=== PATIENT | female | born 1965 | race Caucasian/White ===

== ENCOUNTER 2016-03-08 13:26 | Emergency (ER) | payer OTHER ==
[2016-03-08 14:19] VITALS: RESP 20
[2016-03-08] MEDS ORDERED: IPRATROPIUM-ALBUTEROL 3 ML NEB INHALATION STA (15:22)
--- NOTE | 2016-03-08 15:42 | ED ---
General Adult HPI - General Chief complaint: Upper Respiratory Infection Stated complaint: cough, wheezing, BEATRICE Time Seen by Provider: 03/08/16 14:46 Source: patient, RN notes reviewed Mode of arrival: ambulatory Limitations: no limitations - History of Present Illness Initial comments: This 50-year-old female with complaints of cough 1 week. Patient states the cough has been going on for about a week but improved for 3 days but is now back. Patient states the cough is productive. Patient also complains of some wheezing at night. Patient also complains of some congestion. Patient denies any fever/chills, nausea/vomiting/diarrhea, otalgia, sore throat, or headache. Patient denies any history of smoking, asthma or COPD. Patient states she gets similar symptoms every year. Patient denies any recent chest pain, abdominal pain, back pain, numbness, tingling, hematuria, or visual changes, or any other complaints. - Related Data Home Medications Medication Instructions Recorded Confirmed DULoxetine HCL [Cymbalta] 30 mg PO DAILY 06/29/15 06/29/15 Simvastatin [Zocor] 10 mg PO HS 06/29/15 06/29/15 traZODone HCL 100 mg PO HS 06/29/15 06/29/15 Previous Rx's Medication Instructions Recorded Albuterol Inhaler [Ventolin Hfa 1 - 2 puff INHALATION Q6HR #1 03/08/16 Inhaler] inhaler Albuterol Nebulized [Ventolin 2.5 mg INHALATION Q4H 7 Days 03/08/16 Nebulized] Azithromycin [Zithromax Z-pack] 250 mg PO DIRECTED #6 tab 03/08/16 methylPREDNISolone [Medrol Dose 4 mg PO DIRECTED #1 pack 03/08/16 Pack] Allergies Allergy/AdvReac Type Severity Reaction Status Date / Time No Known Allergies Allergy Verified 06/29/15 17:37 Review of Systems ROS Statement: Those systems with pertinent positive or pertinent negative responses have been documented in the HPI. ROS Other: All systems not noted in ROS Statement are negative. Past Medical History Past Medical History: Hyperlipidemia History of Any Multi-Drug Resistant Organisms: None Reported Past Surgical History: Orthopedic Surgery Past Psychological History: Depression Smoking Status: Never smoker Past Alcohol Use History: None Reported Past Drug Use History: None Reported General Exam - General Exam Comments Initial Comments: General: The patient is awake and alert, in no distress, and does not appear acutely ill. Eye: Pupils are equal, round and reactive to light, extra-ocular movements are intact. No nystagmus. There is normal conjunctiva bilaterally. No signs of icterus. Ears: TMs pink and pearly with intact cone light bilaterally. Normal external ear canals. Nose: Nasal turbinates slightly erythematous but clear drainage bilaterally. No discomfort to palpation of the frontal or maxillary sinuses. Mouth and throat: There are moist mucous membranes and no oral lesions. Neck: The neck is supple, there is no tenderness or JVD. Cardiovascular: There is a regular rate and rhythm. No murmur, rub or gallop is appreciated. Respiratory: Lung sounds are diminished with faint wheezes present throughout, respirations are non-labored, breath sounds are equal. No stridor, rales, or rhonchi. Musculoskeletal: Normal ROM, no tenderness. Strength 5/5. Sensation intact. Radial Pulses equal bilaterally 2+. Neurological: A&O x 3. CN II-XII intact, There are no obvious motor or sensory deficits. Coordination appears grossly intact. Speech is normal. Skin: Skin is warm and dry and no rashes or lesions are noted. Psychiatric: Cooperative, appropriate mood & affect, normal judgment. Limitations: no limitations Course Vital Signs 03/08/16 03/08/16 03/08/16 14:17 15:38 15:49 Temperature 98.7 F Pulse Rate 90 76 72 Respiratory 20 Rate Blood Pressure 170/85 O2 Sat by Pulse 97 Oximetry 03/08/16 16:17 Temperature 98.4 F Pulse Rate 85 Respiratory 20 Rate Blood Pressure 160/89 O2 Sat by Pulse 97 Oximetry Medical Decision Making - Medical Decision Making Is a 50-year-old female presents with cough and wheezing. On physical exam lung sounds are diminished with faint wheezes present throughout, respirations are non-labored, breath sounds are equal. No stridor, rales, or rhonchi. Patient is afebrile in the EC. Pulse is 90, respirations are 20 and patient is 97% on room air. Patient's elevated systolic blood pressure reading noted. Patient states she follows up with her primary care physician tomorrow. Discussed follow-up with primary care physician for blood pressure. Patient states it is usually elevated when she is sick. Chest x-ray was done and reviewed showing: Correlate for bronchitis, follow-up is indicated. Reported by Dr. Longoria. Patient was given a DuoNeb treatment in the EC today symptom improvement. I discussed the results with patient. Discussed that patient will be given a prescription for an albuterol inhaler, nebulizer machine and for a course of steroids. Discussed that most cases of bronchitis are viral. Patient will be given a prescription for azithromycin if her symptoms do not improve within the next 5 days with alubterol and medrol. I discussed return parameters. Discussed that patient should follow up with PCP in one to 2 days or return to the [facility] for any worsening symptoms or for any further concerns. Patient was receptive to this plan and patient will be discharged home. Disposition Clinical Impression: Bronchitis Disposition: HOME SELF-CARE Condition: Good Instructions: Acute Bronchitis (ED) Additional Instructions: Please finish entire course of steroids. Please use albuterol every 4 hours as needed for wheezing. Please use azithromycin if symptoms do not improve over the next few days. Please follow up with PCP in one to 2 days or return to EC for any worsening symptoms or for any further concerns. Prescriptions: Albuterol Inhaler [Ventolin Hfa Inhaler] 1 - 2 puff INHALATION Q6HR #1 inhaler Albuterol Nebulized [Ventolin Nebulized] 2.5 mg INHALATION Q4H 7 Days Azithromycin [Zithromax Z-pack] 250 mg PO DIRECTED #6 tab methylPREDNISolone [Medrol Dose Pack] 4 mg PO DIRECTED #1 pack Referrals: Roberto Lindo MD [Primary Care Provider] - 1-2 days Time of Disposition: 16:25
--- NOTE | 2016-03-08 15:59 | XR ---
EXAMINATION TYPE: XR chest 2V DATE OF EXAM: 03/08/2016 3:55 PM COMPARISON: Prior chest x-ray October HISTORY: Cough and pain TECHNIQUE: Frontal and lateral views of the chest are obtained. FINDINGS: There is no focal air space opacity, pleural effusion, or pneumothorax seen. The cardiac silhouette size is within normal limits. The patient is rotated which may accentuate the heart size. Bronchial wall thickening is noted. The osseous structures are intact. IMPRESSION: Correlate for bronchitis, follow-up as indicated.
[2016-03-08 16:18] VITALS: BP 160/89; PULSE 85; TEMP 98.4
== END 2016-03-08 16:29 | disposition home or self-care (01) ==
LOC: EC 13:26
DX: J40 Bronchitis, not specified as acute or chronic (principal); E78.5 Hyperlipidemia, unspecified; F32.9 Major depressive disorder, single episode, unspecified; Z79.899 Other long term (current) drug therapy; R03.0 Elevated blood-pressure reading, without diagnosis of hypertension
CPT/HCPCS: 71020; 94640; 99283

== ENCOUNTER 2016-11-01 07:59 | Emergency (ER) | payer OTHER ==
[2016-11-01 08:05] VITALS: BP 206/93; PULSE 67; RESP 18; TEMP 98.4
[2016-11-01] MEDS ORDERED: IBUPROFEN 600 MG TAB PO STA (08:14)
--- NOTE | 2016-11-01 08:14 | ED ---
General Adult HPI - General Chief complaint: Extremity Injury, Upper Stated complaint: Right Finger Injury Time Seen by Provider: 11/01/16 08:07 Source: patient, RN notes reviewed Mode of arrival: ambulatory Limitations: no limitations - History of Present Illness Initial comments: 51-year-old female presents to the emergency department with a chief complaint of right hand pain. Patient states she was playing with her granddaughter most pain ever since then she's had this pain to the right hand and the right ring finger. Patient states she was at [place] backwards at times she says she was it [id number]. Patient states there is no falls to the area. Patient states she was just plain and then she got a pain. Patient denies any history of injury to this area in the past. pain is moderate worse to movement. Patient denies any other symptoms at this time.Patient denies any recent fever, chills, shortness of breath, chest pain, back pain, abdominal pain, nausea vomiting, numbness or tingling, dysuria or hematuria, constipation or diarrhea, headaches or visual changes, or any other current symptoms. - Related Data Home Medications Medication Instructions Recorded Confirmed DULoxetine HCL [Cymbalta] 30 mg PO DAILY 06/29/15 06/29/15 Simvastatin [Zocor] 10 mg PO HS 06/29/15 06/29/15 traZODone HCL 100 mg PO HS 06/29/15 06/29/15 Previous Rx's Medication Instructions Recorded Albuterol Inhaler [Ventolin Hfa 1 - 2 puff INHALATION Q6HR #1 03/08/16 Inhaler] inhaler Albuterol Nebulized [Ventolin 2.5 mg INHALATION Q4H 7 Days 03/08/16 Nebulized] Azithromycin [Zithromax Z-pack] 250 mg PO DIRECTED #6 tab 03/08/16 methylPREDNISolone [Medrol Dose 4 mg PO DIRECTED #1 pack 03/08/16 Pack] Allergies Allergy/AdvReac Type Severity Reaction Status Date / Time No Known Allergies Allergy Verified 11/01/16 08:05 Review of Systems ROS Statement: Those systems with pertinent positive or pertinent negative responses have been documented in the HPI. ROS Other: All systems not noted in ROS Statement are negative. Past Medical History Past Medical History: Hyperlipidemia History of Any Multi-Drug Resistant Organisms: None Reported Past Surgical History: Orthopedic Surgery Past Psychological History: Depression Smoking Status: Never smoker Past Alcohol Use History: None Reported Past Drug Use History: None Reported General Exam - General Exam Comments Initial Comments: General: The patient is awake and alert, in no distress, and does not appear acutely ill. Neck: The neck is supple, there is no tenderness. Cardiovascular: There is a regular rate and rhythm. No murmur, rub or gallop is appreciated. Respiratory: Lungs are clear to auscultation, respirations are non-labored, breath sounds are equal. No wheezes, stridor, rales, or rhonchi. Musculoskeletal: Sensation intact with 2+ pulses. Pressure. Range of motion of right wrist and right hand. Patient does have some pain throughout the fourth metacarpal. No pain to palpation of the right ring finger. No deformities or ecchymosis noted. Neurological: CN II-XII intact, There are no obvious motor or sensory deficits. Coordination appears grossly intact. Speech is normal. Skin: Skin is warm and dry and no rashes or lesions are noted. Psychiatric: Normal mood and affect. Limitations: no limitations Course Vital Signs 11/01/16 08:03 Temperature 98.4 F Pulse Rate 67 Respiratory 18 Rate Blood Pressure 206/93 O2 Sat by Pulse 98 Oximetry Medical Decision Making - Medical Decision Making 51-year-old female presents for right finger pain after playing. At this time x -ray is reviewed and negative. This and we discussed Motrin Tylenol ice. We discussed return parameters follow-up and outpatient family's questions. They stated the Cornelio they are given plan. All questions have been answered. They will be discharged home. - Radiology Data Radiology results: report reviewed, image reviewed Disposition Clinical Impression: Sprain of right hand, Contusion of right hand Disposition: HOME SELF-CARE Condition: Stable Instructions: Hand Sprain (ED) Additional Instructions: Please use medication as discussed. Please follow up with family doctor if symptoms have not improved over the next two days. Please return to the emergency room if your symptoms increase or worsen or for any other concerns. Referrals: Roberto Lindo MD [Primary Care Provider] - 1-2 days Time of Disposition: 08:30
--- NOTE | 2016-11-01 08:28 | XR ---
EXAMINATION TYPE: XR hand complete RT DATE OF EXAM: 11/01/2016 CLINICAL HISTORY: Right hand pain TECHNIQUE: Frontal, lateral and oblique images of the right hand are obtained. COMPARISON: None. FINDINGS: There is no acute fracture/dislocation evident in the right hand. The joint spaces in the right hand appear within normal limits. The overlying soft tissue appears unremarkable. IMPRESSION: There is no acute fracture or dislocation in the right hand.
== END 2016-11-01 08:38 | disposition home or self-care (01) ==
LOC: EC 07:59
DX: S63.91XA Sprain of unspecified part of right wrist and hand, initial encounter (principal); E78.5 Hyperlipidemia, unspecified; F32.9 Major depressive disorder, single episode, unspecified; Z79.899 Other long term (current) drug therapy; X58.XXXA Exposure to other specified factors, initial encounter; Y93.89 Activity, other specified
CPT/HCPCS: 99283

== ENCOUNTER → 2017-05-09 | Outpatient (CLI) | payer OTHER | END | disposition home or self-care (01) | LOC: LABWHC1 13:05 | PROVIDERS: ATTEND Family Medicine | DX: R11.2 Nausea with vomiting, unspecified (principal) | CPT/HCPCS: 87502 ==

== ENCOUNTER 2019-03-07 16:44 | Observation (INO) | payer OTHER ==
[2019-03-07] MEDS ORDERED: ASPIRIN 81 MG PO STA (18:31)
[2019-03-07] MEDS ORDERED: SODIUM CHLORIDE 0.9% 500 ML 500 ML IV STA (18:31)
--- NOTE | 2019-03-07 18:52 | ED ---
General Adult HPI - General Source: patient Mode of arrival: ambulatory Limitations: no limitations <France Mcgarry - Last Filed: 03/07/19 20:59> <Rossy Rosen - Last Filed: 03/10/19 21:25> - General Chief complaint: Chest Pain Stated complaint: chest pain Time Seen by Provider: 03/07/19 18:11 - History of Present Illness Initial comments: 53-year-old female patient presents to the emergency department today for evaluation of chest pain. 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 Patient states the pain is worse when she is doing activity and standing. Patient states the pain diminishes while resting but never completely goes away. She denies any radiation of the pain through to her back. She denies any associated symptoms including shortness of breath, sweating, nausea, or vomiting. She denies history of similar type pain. Patient does have a history of high cholesterol does take blood pressure medication, she does not believe she has hypertension. States that she generally has some swelling to her lower extremities but denies any increase in the swelling or pain to the legs. Denies any recent travel. Denies any cough or congestion. Patient denies any recent rash, fever, chills, diarrhea, constipation, back pain, numbness, tingling, dizziness, weakness, hematuria, dysuria, urinary urgency, urinary frequency, headache, visual changes, or any other complaints. (France Mcgarry) - Related Data Home Medications Medication Instructions Recorded Confirmed DULoxetine HCL [Cymbalta] 30 mg PO HS 06/29/15 03/07/19 Chlorthalidone 25 mg PO HS 03/07/19 03/07/19 Lisinopril [Prinivil] 10 mg PO HS 03/07/19 03/07/19 rOPINIRole HCL [Requip] 0.25 mg PO HS 03/07/19 03/07/19 traZODone HCL 100 mg PO HS 03/07/19 03/07/19 Allergies Allergy/AdvReac Type Severity Reaction Status Date / Time No Known Allergies Allergy Verified 03/07/19 22:04 Review of Systems ROS Other: All systems not noted in ROS Statement are negative. <France Mcgarry - Last Filed: 03/07/19 20:59> ROS Other: All systems not noted in ROS Statement are negative. <Rossy Rosen - Last Filed: 03/10/19 21:25> ROS Statement: Those systems with pertinent positive or pertinent negative responses have been documented in the HPI. Past Medical History Past Medical History: Hyperlipidemia History of Any Multi-Drug Resistant Organisms: None Reported Past Surgical History: Orthopedic Surgery Past Psychological History: Depression Smoking Status: Never smoker Past Alcohol Use History: None Reported Past Drug Use History: None Reported <France Mcgarry Daron - Last Filed: 03/07/19 20:59> General Exam Limitations: no limitations General appearance: alert, in no apparent distress, other (This is a well- developed, well-nourished adult female patient in no acute distress. Vital sig ns upon presentation are temperature 97.6F, pulse 71, respirations 19, blood pressure 134/90, pulse ox 98% on room air.) Eye exam: Present: normal appearance, PERRL, EOMI. Absent: scleral icterus, conjunctival injection, periorbital swelling ENT exam: Present: normal exam, normal oropharynx, mucous membranes moist Respiratory exam: Present: normal lung sounds bilaterally. Absent: respiratory distress, wheezes, rales, rhonchi, stridor Cardiovascular Exam: Present: regular rate, normal rhythm, normal heart sounds. Absent: systolic murmur, diastolic murmur, rubs, gallop, clicks GI/Abdominal exam: Present: soft, tenderness (Mild midepigastric), normal bowel sounds. Absent: distended, guarding, rebound, rigid Neurological exam: Present: alert, oriented X3, CN II-XII intact Psychiatric exam: Present: normal affect, normal mood Skin exam: Present: warm, dry, intact, normal color. Absent: rash <France Mcgarry M - Last Filed: 03/07/19 20:59> Course Vital Signs 03/07/19 03/07/19 03/07/19 16:47 17:58 18:57 Temperature 97.6 F 98.7 F Pulse Rate 71 62 68 Respiratory 19 17 20 Rate Blood Pressure 134/90 141/87 127/77 O2 Sat by Pulse 98 100 100 Oximetry 03/07/19 03/07/19 20:00 21:00 Temperature 98.1 F 98.6 F Pulse Rate 80 59 L Respiratory 16 17 Rate Blood Pressure 146/80 146/80 O2 Sat by Pulse 100 99 Oximetry EKG Findings - EKG Comments: EKG Findings:: EKG obtained at 1705 shows normal sinus rhythm with a ventricular rate of 65,. Interval 180, QRS duration 80, QTc 416, QTC 432. There is some T-wave inversion in V1, V2, and aVR. No ST elevation or depression noted. <France Mcgarry - Last Filed: 03/07/19 20:59> Medical Decision Making - Lab Data Result diagrams: 03/07/19 17:30 03/07/19 17:30 - Radiology Data Radiology results: report reviewed, image reviewed <France Mcgarry - Last Filed: 03/07/19 20:59> - Lab Data Result diagrams: 03/07/19 17:30 03/07/19 17:30 <Rossy Rosen - Last Filed: 03/10/19 21:25> - Medical Decision Making 53-year-old female patient presents to the emergency department today for evalu ation of substernal chest pain that worsens with activity and improves at rest. EKG did show some T-wave inversions. She does have history of hypertension and hyperlipidemia. She will be admitted to the hospital for observation and further monitoring. We will consult cardiology. (France Mcgarry) I was available for consultation in the emergency department. The history and physical exam were done by the midlevel provider. I was consulted for this patients care. I reviewed the case with the midlevel provider and based on their presentation of the patient, I agree with the assessment, medical decision making and plan of care as documented. Case was discussed with Dr. Lindo who accepted admission. Chart was dictated using [employer] dictation software. Attempts were made to correct any dictation errors however some typographical errors may persist. (Rossy Rosen) - Lab Data Lab Results 03/07/19 03/07/19 03/07/19 Range/Units 17:30 17:30 17:30 WBC 6.0 (3.8-10.6) k/uL RBC 4.16 (3.80-5.40) m/uL Hgb 12.1 (11.4-16.0) gm/dL Hct 36.4 (34.0-46.0) % MCV 87.5 (80.0-100.0) fL MCH 29.1 (25.0-35.0) pg MCHC 33.3 (31.0-37.0) g/dL RDW 13.5 (11.5-15.5) % Plt Count 358 (150-450) k/uL Neutrophils % 60 % Lymphocytes % 26 % Monocytes % 6 % Eosinophils % 3 % Basophils % 1 % Neutrophils # 3.6 (1.3-7.7) k/uL Lymphocytes # 1.6 (1.0-4.8) k/uL Monocytes # 0.4 (0-1.0) k/uL Eosinophils # 0.2 (0-0.7) k/uL Basophils # 0.1 (0-0.2) k/uL PT 9.6 (9.0-12.0) sec INR 0.9 (<1.2) APTT 24.9 (22.0-30.0) sec Sodium 137 (137-145) mmol/L Potassium 4.3 (3.5-5.1) mmol/L Chloride 98 (98-107) mmol/L Carbon Dioxide 31 H (22-30) mmol/L Anion Gap 8 mmol/L BUN 15 (7-17) mg/dL Creatinine 0.91 (0.52-1.04) mg/dL Est GFR (CKD-EPI)AfAm 84 (>60 ml/min/1.73 sqM) Est GFR (CKD-EPI)NonAf 73 (>60 ml/min/1.73 sqM) Glucose 100 H (74-99) mg/dL Calcium 10.3 H (8.4-10.2) mg/dL Magnesium 2.0 (1.6-2.3) mg/dL Total Bilirubin 0.9 (0.2-1.3) mg/dL AST 24 (14-36) U/L ALT 24 (4-34) U/L Alkaline Phosphatase 78 (38-126) U/L Troponin I (0.000-0.034) ng/mL Total Protein 6.8 (6.3-8.2) g/dL Albumin 4.0 (3.5-5.0) g/dL Lipase 25 (23-300) U/L 03/07/19 Range/Units 17:30 WBC (3.8-10.6) k/uL RBC (3.80-5.40) m/uL Hgb (11.4-16.0) gm/dL Hct (34.0-46.0) % MCV (80.0-100.0) fL MCH (25.0-35.0) pg MCHC (31.0-37.0) g/dL RDW (11.5-15.5) % Plt Count (150-450) k/uL Neutrophils % % Lymphocytes % % Monocytes % % Eosinophils % % Basophils % % Neutrophils # (1.3-7.7) k/uL Lymphocytes # (1.0-4.8) k/uL Monocytes # (0-1.0) k/uL Eosinophils # (0-0.7) k/uL Basophils # (0-0.2) k/uL PT (9.0-12.0) sec INR (<1.2) APTT (22.0-30.0) sec Sodium (137-145) mmol/L Potassium (3.5-5.1) mmol/L Chloride (98-107) mmol/L Carbon Dioxide (22-30) mmol/L Anion Gap mmol/L BUN (7-17) mg/dL Creatinine (0.52-1.04) mg/dL Est GFR (CKD-EPI)AfAm (>60 ml/min/1.73 sqM) Est GFR (CKD-EPI)NonAf (>60 ml/min/1.73 sqM) Glucose (74-99) mg/dL Calcium (8.4-10.2) mg/dL Magnesium (1.6-2.3) mg/dL Total Bilirubin (0.2-1.3) mg/dL AST (14-36) U/L ALT (4-34) U/L Alkaline Phosphatase (38-126) U/L Troponin I <0.012 (0.000-0.034) ng/mL Total Protein (6.3-8.2) g/dL Albumin (3.5-5.0) g/dL Lipase (23-300) U/L - Radiology Data Two-view x-ray of the chest is obtained. Report reviewed in its entirety. Impression by Dr. Dutta shows no active cardiopulmonary disease. No change (France Mcgarry) Disposition Decision to Admit Reason: Admit from [facility] Decision Date: 03/07/19 Decision Time: 20:13 <France Mcgarry - Last Filed: 03/07/19 20:59> <Rossy Rosen - Last Filed: 03/10/19 21:25> Clinical Impression: Chest pain Disposition: ADMITTED IP TO THIS HOSP Condition: Serious
[2019-03-07 19:09] LABS: Basophils # (A) 0.1 k/uL (0-0.2); Basophils % (A) 1 %; Eosinophils # (A) 0.2 k/uL (0-0.7); Eosinophils % (A) 3 %; HCT 36.4 % (34.0-46.0); HGB 12.1 gm/dL (11.4-16.0); Lymphocytes # (A) 1.6 k/uL (1.0-4.8); Lymphocytes % (A) 26 %; MCH 29.1 pg (25.0-35.0); MCHC 33.3 g/dL (31.0-37.0); MCV 87.5 fL (80.0-100.0); Mean Platelet Volume 7.3; Monocytes # (A) 0.4 k/uL (0-1.0); Monocytes % (A) 6 %; Neutrophils # (A) 3.6 k/uL (1.3-7.7); Neutrophils % (A) 60 %; Platelet Count 358 k/uL (150-450); RBC 4.16 m/uL (3.80-5.40); RDW 13.5 % (11.5-15.5)
[2019-03-07 19:15] LABS: Calcium 10.3 mg/dL (8.4-10.2); Potassium 4.3 mmol/L (3.5-5.1); Total Bilirubin 0.9 mg/dL (0.2-1.3); Total Protein 6.8 g/dL (6.3-8.2)
[2019-03-07 19:31] LABS: INR 0.9 (<1.2); Partial Thromboplastin Time 24.9 sec (22.0-30.0); Prothrombin Time 9.6 sec (9.0-12.0)
--- NOTE | 2019-03-07 19:36 | XR ---
EXAMINATION TYPE: XR chest 2V DATE OF EXAM: 03/07/2019 COMPARISON: 03/08/2016 HISTORY: Chest pain TECHNIQUE: FINDINGS: There is no heart failure nor confluent pneumonic infiltrate. Costophrenic angles are clear . There are chest leads. Bony thorax is intact. IMPRESSION: No active cardiopulmonary disease. No change.
[2019-03-07] MEDS ORDERED: ONDANSETRON 4 MG/2 ML VIAL IVP PRN (20:11)
[2019-03-07] MEDS ORDERED: NALOXONE 0.4 MG/ML 1 ML VIAL IV PRN (20:11)
[2019-03-07 21:36] VITALS: RESP 18
[2019-03-08 06:08] LABS: Cholesterol 208 mg/dL (<200); HDL Cholesterol 52 mg/dL (40-60); LDL Cholesterol,Calculated 138 mg/dL (0-99); Triglycerides 91 mg/dL (<150)
[2019-03-08] MEDS ORDERED: DOBUTamine DRIP for NUC MED 500 MG in DEXTROSE/WATER 1 250ML.BAG IV ONE (08:00)
[2019-03-08] MEDS ORDERED: ASPIRIN 325 MG TAB PO SCH (09:00)
[2019-03-08] MEDS ORDERED: ASPIRIN 81 MG PO SCH (09:00)
--- NOTE | 2019-03-08 10:08 | CONS ---
CONSULTATION Mrs. Graves is a 53-year-old female with a history of hypertension who presented with symptoms of chest discomfort. The discomfort started yesterday across the chest, associated with some worsening with physical activity, not associated with any dyspnea, dizziness or palpitation. The patient has no prior cardiac history. Her discomfort lasted throughout the day. She is pain-free this morning. She is not very active physically because of her knee discomfort, but she has no prior cardiac history. She denies any significant dyspnea on exertion. She denies any dizziness, palpitation, or syncope. No PND or orthopnea. She has occasional peripheral edema. Her coronary risk factors are remarkable for hypertension. She is nonsmoker, nondiabetic. She is not aware of her lipid profile. MEDICATION: Her medications at home include trazodone 100 mg daily, ropinirole 0.25 mg daily, lisinopril 10 mg daily, Cymbalta 30 mg daily, chlorthalidone 25 mg daily. REVIEW OF SYSTEMS: RESPIRATORY SYSTEM: She has no documented history of asthma, emphysema or bronchitis. GI SYSTEM: No recent GI bleeding. No peptic ulcer disease. SYSTEM: No dysuria or hematuria. NERVOUS SYSTEM: No stroke or seizure. PHYSICAL EXAMINATION: She is a 53-year-old female, alert, oriented, in no apparent distress. Blood pressure 122/70 with the heart rate in the 60s. HEAD: Normocephalic. EYES: Sclerae nonicteric. NECK: Good carotid upstroke. No bruit. No jugular venous distention. LUNGS: Clear to auscultation. HEART: Regular rate and rhythm. S1, S2. No S3. No S4. No murmur or rub. ABDOMEN: Soft, obese, nontender. Positive bowel sounds. No organomegaly. EXTREMITIES: No edema. Intact distal pulses. LAB DATA: Lab data revealed a troponin less than 0.012. Cholesterol 208, LDL of 138, HDL of 52. Potassium 4.3. Hemoglobin of 12.1. EKG revealed a sinus mechanism, normal axis and intervals with minor nonspecific ST-T wave changes. Chest x-ray shows no acute infiltrate. IMPRESSION: 1. Chest discomfort of unclear etiology, has some atypical features for ischemic heart disease in a patient with a history of hypertension. 2. History of hypertension. 3. Obesity. RECOMMENDATION: I recommend proceeding with dobutamine stress echocardiogram as well as transthoracic echo and depending on those findings, further recommendation will be made. Thank you for this consult. We will follow with you. MMODL / IJN: [id number] /
--- NOTE | 2019-03-08 10:48 | ECHOF ---
Referral Reason:cp MEASUREMENTS -------- HEIGHT: 157.5 cm WEIGHT: 130.6 kg BP: 122/78 RVIDd: 3.0 cm (< 3.3) IVSd: 1.3 cm (0.6 - 1.1) LVIDd: 4.9 cm (3.9 - 5.3) LVPWd: 1.3 cm (0.6 - 1.1) IVSs: 1.9 cm LVIDs: 3.1 cm LVPWs: 1.7 cm LA Diam: 2.8 cm (2.7 - 3.8) LAESV Index (A-L): 25.71 ml/m Ao Diam: 3.2 cm (2.0 - 3.7) AV Cusp: 2.0 cm (1.5 - 2.6) MV EXCURSION: 17.297 mm (> 18.000) MV EF SLOPE: 113 mm/s (70 - 150) EPSS: 1.4 cm MV E Ar: 0.96 m/s MV DecT: 227 ms MV A Ar: 1.13 m/s MV E/A Ratio: 0.85 RAP: 15.00 mmHg RVSP: 28.85 mmHg FINDINGS -------- Sinus rhythm. This was a technically adequate study. The left ventricular size is normal. There is mild concentric left ventricular hypertrophy. Overa ll left ventricular systolic function is normal with, an EF between 55 - 60 %. The diastolic fillin g pattern is normal for the age of the patient 12.92. The right ventricle is normal in size. Normal LA size by volume 22+/-6 ml/m2. The right atrial size is normal. The aortic valve is trileaflet, and appears structurally normal. No aortic stenosis or regurgitation. The mitral valve is normal. There is trace mitral regurgitation. Mild tricuspid regurgitation present. Right ventricular systolic pressure is normal at < 35 mmHg. The right ventricular systolic pressure, as measured by Doppler, is 28.85mmHg. Trace/mild (physiologic) pulmonic regurgitation. The aortic root size is normal. Normal inferior vena cava with less than 50% inspiratory collapse consistent with estimated right atr ial pressure of 15 mmHg. There is no pericardial effusion. CONCLUSIONS -------- 1. Sinus rhythm. 2. There is mild concentric left ventricular hypertrophy. 3. Overall left ventricular systolic function is normal with, an EF between 55 - 60 %. 4. The diastolic filling pattern is normal for the age of the patient 12.92 5. Normal LA size by volume 22+/-6 ml/m2. 6. The aortic valve is trileaflet, and appears structurally normal. No aortic stenosis or regurgitati on. 7. There is trace mitral regurgitation. 8. Mild tricuspid regurgitation present. 9. Right ventricular systolic pressure is normal at < 35 mmHg. 10. Trace/mild (physiologic) pulmonic regurgitation. 11. There is no pericardial effusion. [employer]UD [employer]: YELENA Murray
--- NOTE | 2019-03-08 11:17 | ECHOS ---
STRESS ECHOCARDIOGRAM DATE OF SERVICE: 03/08/2019 INDICATIONS: Chest pain. MEDICATIONS: BASELINE HEART RATE: 71 BASELINE BLOOD PRESSURE: 137/64 MAXIMUM HEART RATE: 148 MAXIMUM BLOOD PRESSURE: 181/40 85% MPHR: 143 100% MPHR: 168 METS: MAXIMUM STAGE REACHED: TOTAL EXERCISE TIME: CLINICAL INFORMATION: Baseline rhythm is sinus mechanism, rate of 71, normal axis and intervals. Baseline blood pressure 137/64 mmHg. Patient received an infusion of dobutamine per protocol. Peak rate 148 beats per minute which is equal to 88% maximum predicted heart rate. Peak blood pressure 181/40 mmHg. Electrocardiograph monitoring revealed no evidence of diagnostic ischemic ST deviation. Baseline echocardiogram revealed normal wall thickening and motion. At peak infusion, there was normal wall motion augmentation with no hypokinesis or dyskinesis. CONCLUSION: 1. Normal electrocardiograph response to dobutamine infusion. 2. Normal stress echocardiogram with no evidence of stress induced ischemia. MMODL / IJN: [id number] /
[2019-03-08 16:26] VITALS: BP 129/78; PULSE 70; TEMP 98
--- NOTE | 2019-03-08 17:05 | HP ---
HISTORY AND PHYSICAL CHIEF COMPLAINT: Chest pain. HISTORY OF PRESENT ILLNESS: This is another admission for this 53-year-old obese white female who presented to the emergency room with chest pain. She had some minor ST-segment and T-wave changes when she came to the emergency room, which subsided. She was slightly short of breath but not diaphoretic. Troponin was normal. She does have a history of hypertension. REVIEW OF SYSTEMS: She has had no syncope, headache, neurologic problems, difficulty with vision or hearing, cough, hemoptysis, sputum production, pleurisy, orthopnea, PND, murmurs, rheumatic fever, history of heart disease, angina, or murmurs, etc. She has had no abdominal pain, nausea, vomiting, hematemesis, melena, hematochezia, colitis, diverticulosis, diverticulitis, hemorrhoids, jaundice, hepatitis, cirrhosis, hematuria, frequency, urgency, renal failure, diabetes, etc. Past medical history, family history, personal and social histories reveal that she is not allergic to any medications. MEDICATIONS: She takes trazodone 100 mg at bedtime, vitamin D 50,000 units a week, lisinopril 10 mg once a day, chlorthalidone 25 once a day, duloxetine 30 mg once a day. Ibuprofen 800 mg q.i.d. p.r.n., ropinirole 0.25 at bedtime p.r.n., albuterol. Past medical history, family history and personal and social histories are otherwise unremarkable and noncontributory. She has never been a smoker. She does not drink. She has had tubal ligation, right knee replacement, left knee arthroscopy, and cholecystectomy. PHYSICAL EXAMINATION: Blood pressure 126/84, pulse 64, respirations 16 and she is afebrile. In general, she appeared to be obese with a BMI of 53.6. Skin color is normal. Skin is warm, dry. Lymph nodes not enlarged. Head, ears, eyes, nose, mouth, and throat were normal. Neck veins not distended. Thyroid could not be assessed. Chest is clear to auscultation. Cardiac exam demonstrates sinus rhythm and no murmurs or extra sounds. Abdomen is soft and nontender and protuberant. Extremities normal. Neurological: She is intact. IMPRESSION: 1. Chest pain. 2. Hypertension. PLAN: 1. Bed rest. 2. IV fluids. 3. Serial EKGs and enzymes. 4. Cardiology consult. YONIS / KENN: [id number] /
[2019-03-08] MEDS ORDERED: LISINOPRIL 10 MG TAB PO SCH (21:00)
[2019-03-08] MEDS ORDERED: CHLORTHALIDONE 25 MG TAB PO SCH (21:00)
--- NOTE | 2019-03-09 08:05 | DS ---
DISCHARGE SUMMARY CHIEF COMPLAINT: Chest pain. HISTORY OF PRESENT ILLNESS AND PHYSICAL EXAM: Details of this lady's history and physical can be found in the initial workup. LABORATORY STUDIES: While she was in a hospital, she had laboratory studies, details of which can be found in the laboratory section of her chart. COURSE IN HOSPITAL: After admission, she was placed on bedrest, started on intravenous fluids and had serial enzymes and EKGs which were normal. She was taken for stress test by Cardiology and it was normal. It was felt she could be discharged. She will go home on the usual activity, diet and medication and follow up in the office in 1 or 2 days. FINAL DIAGNOSES: 1. Atypical chest pain. 2. Obesity. 3. Hypertension. OPERATIONS: None. CONSULTATION: Cardiology. She is improved. YONIS / KENN: [id number] /
== END 2019-03-08 17:13 | disposition home or self-care (01) ==
LOC: EC 16:44 → 1SOBS 21:00
PROVIDERS: ADMIT Family Medicine; ATTEND Family Medicine
DX: R07.89 Other chest pain (principal); R06.02 Shortness of breath; E78.00 Pure hypercholesterolemia, unspecified; I10 Essential (primary) hypertension; E78.5 Hyperlipidemia, unspecified; E66.9 Obesity, unspecified; Z68.43 Body mass index [BMI] 50.0-59.9, adult; F32.9 Major depressive disorder, single episode, unspecified; Z98.51 Tubal ligation status; Z96.651 Presence of right artificial knee joint; Z90.49 Acquired absence of other specified parts of digestive tract; Z79.899 Other long term (current) drug therapy
CPT/HCPCS: 93005 ×2; 96360; 99285; 36415; 94660; 93306; 80061; 80053; 83690; 83735; 84484 ×2; 85025; 85610; 85730; 71046; G0378 ×2; C8930; J1250; Q9950; 93351

== ENCOUNTER 2020-02-25 08:25 | Day surgery (SDC) | payer OTHER ==
[2020-02-20 16:02] VITALS: BMI 56.0
[~2020-02-25 08:25] MED LIST: HYDROmorphone 0.5 MG/0.5 ML SYRINGE IVP PRN; LACTATED RINGERS 1,000 ML IV SCH; LIDOCAINE 1% (10MG/ML) FOR IV START INTRADERMA PRN; Pre Op ABX Message 1 EACH MISC MISCELLANE ONE; SCOPOLAMINE 1.5MG/72HR PATCH TRANSDERM ONE
[2020-02-25] MEDS: DEXAMETHASONE SOD PHOSPHATE 4 MG/ML 1 ML VIAL IV ONE ×2 (09:01→09:05)
[2020-02-25] MEDS ORDERED: MIDAZOLAM 2 MG/2 ML VIAL IVP ONE ×2 (09:01→09:05)
[2020-02-25] MEDS: ONDANSETRON 4 MG/2 ML VIAL IVP ONE ×2 (09:01→09:05)
[2020-02-25] MEDS ORDERED: fentaNYL (PF) 50 MCG/ML 2 ML AMP ONE (10:15)
[2020-02-25] MEDS ORDERED: KETOROLAC 15 MG/ML 1 ML VIAL ONE (10:15)
[2020-02-25] MEDS ORDERED: SUCCINYLCHOLINE CHLORIDE 100 MG/5 ML SYR IV ONE (10:15)
[2020-02-25] MEDS ORDERED: MIDAZOLAM 2 MG/2 ML VIAL ONE (10:15)
[2020-02-25] MEDS ORDERED: PROPOFOL 10 MG/ML 20 ML VIAL IV ONE (10:15)
[2020-02-25] MEDS ORDERED: SORBITOL 3% IRRIGATION 3,000 ML IRRIGATION ONE (10:34)
[2020-02-25] MEDS ORDERED: LACTATED RINGERS 1,000 ML IV SCH (10:45)
[2020-02-25] MEDS ORDERED: IBUPROFEN 600 MG TAB PO PRN (10:45)
[2020-02-25] MEDS ORDERED: SIMETHICONE 80 MG CHEWABLE PO PRN (10:45)
[2020-02-25] MEDS ORDERED: KETOROLAC 15 MG/ML 1 ML VIAL IVP PRN (10:45)
[2020-02-25] MEDS ORDERED: diphenhydrAMINE 50 MG/ML 1 ML VIAL IVP PRN (10:45)
[2020-02-25] MEDS ORDERED: Acetaminophen-Codeine 300-30mg TAB PO PRN ×2 (10:45)
[2020-02-25] MEDS ORDERED: ONDANSETRON 4 MG/2 ML VIAL IVP PRN (10:45)
[2020-02-25] MEDS ORDERED: METOCLOPRAMIDE 5 MG/ML 2 ML VIAL IVP PRN (10:45)
--- NOTE | 2020-02-25 10:50 | P.OP ---
Date of Procedure: 02/25/20 Preoperative Diagnosis: #1. Post menopausal bleeding #2. Morbid obesity Postoperative Diagnosis: Same Procedure(s) Performed: 1. Diagnostic hysteroscopy #2. Dilation and curettage Anesthesia: CAREN Surgeon: Jimmy Magana Estimated Blood Loss (ml): 5 IV fluids (ml): 300 Urine output (ml): 20 Pathology: other (Endometrial curettings) Condition: stable Disposition: PACU Operative Findings: Preoperative pelvic examination demonstrated a roughly 4 week plane mobile normal shaped uterus of the exam is somewhat limited secondary to patient's abdominal habitus. Intraoperatively, the uterus sounded to 9 cm. Using the hysteroscope, there was some shaggy endometrial tissue in the midportion of the fundus along the posterior wall. The left tubal ostia was seen while the right tubal ostia was not seen secondary to the shaggy tissue in front of it. A moderate amount of tissue was removed and the typical gritty texture was encountered throughout. Description of Procedure: The patient was prepped and draped in usual fashion after general endotracheal anesthesia was administered by the anesthesiologist. A weighted speculum was placed and the interior of the cervix grasped with a single-tooth tenaculum. The bladder was drained of approximately 20 mL of clear tomi urine. Uterus was sounded to approximately 9 cm as noted above. Serial dilation was carried out to admit the diagnostic hysteroscope which was placed and the cavity distended with sorbitol. The findings are as noted above with a moderate amount of shaggy tissue in the mid and upper portion of the posterior wall of the uterus primarily on the right side. There was no other abnormality is noted. The scope was then set aside and the small sharp curette introduced and the cavity which was used to thoroughly and circumferentially curet in vitro cavity tissues onto a Telfa placed in the vagina. Once adequate curettage been carried out, the school commissioner mentation was removed. There was no significant ongoing bleeding from either the cervix or the tenaculum site. All instrument H was removed and the patient workup. Estimated blood loss for the entire case was approximately 5 mL or less. There are no complications. All sponge, instrument, needle counts were correct. The patient tolerated the procedure well and proceeded to the recovery room in stable condition.
[2020-02-25 10:58] VITALS: TEMP 98.3
[2020-02-25 11:01] VITALS: RESP 16
[2020-02-25 11:40] VITALS: BP 146/90; PULSE 96
[2020-02-26] MEDS ORDERED: ACETAMINOPHEN TAB 325 MG TAB PO PRN (10:46)
== END 2020-02-25 12:19 | disposition home or self-care (01) ==
LOC: OR 08:25
PROVIDERS: ATTEND Obstetrics & Gynecology
DX: N84.0 Polyp of corpus uteri (principal); N95.0 Postmenopausal bleeding; N88.2 Stricture and stenosis of cervix uteri; E66.01 Morbid (severe) obesity due to excess calories; F41.9 Anxiety disorder, unspecified; F32.9 Major depressive disorder, single episode, unspecified; E78.5 Hyperlipidemia, unspecified; I10 Essential (primary) hypertension; M19.90 Unspecified osteoarthritis, unspecified site; J45.20 Mild intermittent asthma, uncomplicated; G47.33 Obstructive sleep apnea (adult) (pediatric); R60.0 Localized edema; K08.89 Other specified disorders of teeth and supporting structures; Z68.43 Body mass index [BMI] 50.0-59.9, adult; Z86.2 Personal history of diseases of the blood and blood-forming organs and certain disorders involving the immune mechanism; Z86.19 Personal history of other infectious and parasitic diseases; Z90.49 Acquired absence of other specified parts of digestive tract; Z98.51 Tubal ligation status; Z79.899 Other long term (current) drug therapy; Z79.52 Long term (current) use of systemic steroids; Z79.1 Long term (current) use of non-steroidal anti-inflammatories (NSAID); Z99.89 Dependence on other enabling machines and devices; Z96.651 Presence of right artificial knee joint; Z82.49 Family history of ischemic heart disease and other diseases of the circulatory system; Z82.3 Family history of stroke; Z83.3 Family history of diabetes mellitus; Z81.8 Family history of other mental and behavioral disorders; Z82.0 Family history of epilepsy and other diseases of the nervous system; Z82.1 Family history of blindness and visual loss
CPT/HCPCS: 81025; 88305; 58558; J2250; J1100; J2405; J3010; J1885; J0330; J2704

== ENCOUNTER → 2020-06-04 | Outpatient (CLI) | payer OTHER | END | disposition home or self-care (01) | LOC: LABWHC1 15:42 | PROVIDERS: ATTEND Family Medicine | DX: U07.1 COVID-19 (principal) | CPT/HCPCS: U0003; C9803; U0005 ==

== ENCOUNTER 2020-06-10 12:49 | Emergency (ER) | payer OTHER ==
[2020-06-10 13:25] VITALS: TEMP 98.3
--- NOTE | 2020-06-10 14:34 | XR ---
EXAMINATION TYPE: XR chest 2V DATE OF EXAM: 06/10/2020 COMPARISON: 03/07/2019 TECHNIQUE: PA and lateral views submitted. HISTORY: Difficulty breathing FINDINGS: The lungs are clear and there is no pneumothorax, pleural effusion, or focal pneumonia. Coarsened i nterstitium. Heart size mildly prominent. Biapical pleural thickening. Hypertrophic and degenerative change of the spine. 4 mm nodule right upper lobe. IMPRESSION: 1. Correlate for bronchitis or interstitial pneumonitis.. Subcentimeter right upper lobe pulmonary no dule. Not seen with certainty on prior exam. Short-term follow up CT chest could be obtained.
[2020-06-10 15:48] LABS: Basophils % (A) 0 %; Eosinophils % (A) 1 %; HCT 38.1 % (34.0-46.0); HGB 12.9 gm/dL (11.4-16.0); Lymphocytes % (A) 33 %; MCH 28.4 pg (25.0-35.0); MCHC 33.8 g/dL (31.0-37.0); MCV 84.1 fL (80.0-100.0); Mean Platelet Volume 7.2; Monocytes # (A) 0.2 k/uL (0-1.0); Monocytes % (A) 7 %; Neutrophils # (A) 1.8 k/uL (1.3-7.7); Neutrophils % (A) 58 %; Platelet Count 239 k/uL (150-450); RBC 4.53 m/uL (3.80-5.40); RDW 13.5 % (11.5-15.5); WBC 3.1 k/uL (3.8-10.6)
[2020-06-10 16:02] LABS: Albumin 3.9 g/dL (3.5-5.0); Calcium 9.9 mg/dL (8.4-10.2); Potassium 4.2 mmol/L (3.5-5.1); Total Bilirubin 0.7 mg/dL (0.2-1.3); Total Protein 6.9 g/dL (6.3-8.2)
[2020-06-10 16:13] LABS: INR 0.9 (<1.2); Partial Thromboplastin Time 22.3 sec (22.0-30.0); Prothrombin Time 9.8 sec (9.0-12.0)
[2020-06-10 16:24] LABS: D-Dimer 0.69 mg/L FEU (<0.60)
--- NOTE | 2020-06-10 16:25 | ED ---
SOB HPI - General Chief Complaint: Shortness of Breath Stated Complaint: SOB, DIzziness,COVID + Time Seen by Provider: 06/10/20 13:20 Source: patient Mode of arrival: wheelchair Limitations: no limitations - History of Present Illness Initial Comments: Patient is 54-year-old female past medical history of asthma who presents emergency Department with reported shortness of breath. Patient states that she was tested on 06/04 for Covid as she did have multiple family members which were positive. States that she did test positive. Since then she has become more short of breath with body aches. Admits to nausea without vomiting. No diarrhea. Denies any chest pain. Denies any fevers. She has not taken any medications at home for her symptoms. Denies previous hospitalization for her asthma. No history of cardiac disease. No lower extremity swelling. No other alleviating, precipitating or modifying factors - Related Data Home Medications Medication Instructions Recorded Confirmed DULoxetine HCL [Cymbalta] 30 mg PO HS 06/29/15 06/10/20 Lisinopril [Prinivil] 10 mg PO HS 03/07/19 06/10/20 rOPINIRole HCL [Requip] 0.25 mg PO HS 03/07/19 06/10/20 traZODone HCL 100 mg PO HS 03/07/19 06/10/20 Albuterol Sulfate [Proventil Hfa] 2 puff INHALATION RT-QID PRN 06/10/20 06/10/20 Allergies Allergy/AdvReac Type Severity Reaction Status Date / Time No Known Allergies Allergy Verified 06/10/20 17:58 Review of Systems ROS Statement: Those systems with pertinent positive or pertinent negative responses have been documented in the HPI. ROS Other: All systems not noted in ROS Statement are negative. Past Medical History Past Medical History: Asthma, Hypertension, Osteoarthritis (OA), Sleep Apnea/CPAP/BIPAP Additional Past Medical History / Comment(s): USES C-PAP MACHINE, RLS, POST MENOPAUSAL BLEEDING, PATIENT STATES 2 BROKEN TEETH, TOOTH PAIN-WAITING TO HAVE TEETH PULLED . History of Any Multi-Drug Resistant Organisms: None Reported Past Surgical History: Cholecystectomy, Joint Replacement Additional Past Surgical History / Comment(s): total right knee, salpingectomy? Past Anesthesia/Blood Transfusion Reactions: No Reported Reaction Past Psychological History: Depression Smoking Status: Never smoker Past Alcohol Use History: None Reported Past Drug Use History: None Reported - Past Family History Father Family Medical History: Diabetes Mellitus, Myocardial Infarction ([place]) Mother Family Medical History: Diabetes Mellitus, Myocardial Infarction ([place]) Brother(s) Family Medical History: Diabetes Mellitus, Myocardial Infarction ([place]) Son(s) Family Medical History: No Reported History Daughter(s) Additional Family Medical History / Comment(s): mental disability, ovarian cysts, endometriosis General Exam Limitations: no limitations General appearance: alert, in no apparent distress Head exam: Present: atraumatic, normocephalic, normal inspection Eye exam: Present: normal appearance, PERRL, EOMI. Absent: scleral icterus, conjunctival injection, periorbital swelling ENT exam: Present: normal exam, mucous membranes moist Neck exam: Present: normal inspection. Absent: tenderness, meningismus, lymphadenopathy Respiratory exam: Present: wheezes. Absent: respiratory distress, rales, rhonchi, stridor Cardiovascular Exam: Present: regular rate, normal rhythm, normal heart sounds. Absent: systolic murmur, diastolic murmur, rubs, gallop, clicks GI/Abdominal exam: Present: soft, normal bowel sounds. Absent: distended, tenderness, guarding, rebound, rigid Extremities exam: Present: normal inspection, full ROM, normal capillary refill. Absent: tenderness, pedal edema, joint swelling, calf tenderness Back exam: Present: normal inspection Neurological exam: Present: alert, oriented X3, CN II-XII intact Psychiatric exam: Present: normal affect, normal mood Skin exam: Present: warm, dry, intact, normal color. Absent: rash Course Vital Signs 06/10/20 06/10/20 06/10/20 13:22 15:29 16:49 Temperature 98.3 F Pulse Rate 70 87 Respiratory 18 24 16 Rate Blood Pressure 155/86 136/68 O2 Sat by Pulse 97 97 Oximetry 06/10/20 18:28 Temperature Pulse Rate 71 Respiratory 16 Rate Blood Pressure 137/80 O2 Sat by Pulse 98 Oximetry Medical Decision Making - Medical Decision Making Upon arrival patient was placed into room 17. Thorough history and physical exam was performed. Laboratory studies were conducted. D-dimer 0.69. Chest x- ray demonstrates bronchitis her initial stool pneumonitis. Subcentimeter right upper lobe pulmonary nodule. These results are discussed with patient. Instructed that she must follow-up with her PCP for her pulmonology nodule. At this time the patient does qualify for BAM infusion. She does maintain saturations of 97% without increased work of breathing. Patient does receive her fusion. Instructed to quarantine until her symptoms improve. Follow up with her primary care doctor in 2 to 4 days. Return to the emergency room for any new or worsening symptoms per patient was discharged home in stable condition - Lab Data Result diagrams: 06/10/20 15:28 06/10/20 15:28 Lab Results 06/10/20 06/10/20 06/10/20 Range/Units 15:28 15:28 15:28 WBC 3.1 L (3.8-10.6) k/uL RBC 4.53 (3.80-5.40) m/uL Hgb 12.9 (11.4-16.0) gm/dL Hct 38.1 (34.0-46.0) % MCV 84.1 (80.0-100.0) fL MCH 28.4 (25.0-35.0) pg MCHC 33.8 (31.0-37.0) g/dL RDW 13.5 (11.5-15.5) % Plt Count 239 (150-450) k/uL MPV 7.2 Neutrophils % 58 % Lymphocytes % 33 % Monocytes % 7 % Eosinophils % 1 % Basophils % 0 % Neutrophils # 1.8 (1.3-7.7) k/uL Lymphocytes # 1.0 (1.0-4.8) k/uL Monocytes # 0.2 (0-1.0) k/uL Eosinophils # 0.0 (0-0.7) k/uL Basophils # 0.0 (0-0.2) k/uL PT 9.8 (9.0-12.0) sec INR 0.9 (<1.2) APTT 22.3 (22.0-30.0) sec D-Dimer 0.69 H (<0.60) mg/L FEU Sodium 139 (137-145) mmol/L Potassium 4.2 (3.5-5.1) mmol/L Chloride 102 (98-107) mmol/L Carbon Dioxide 29 (22-30) mmol/L Anion Gap 8 mmol/L BUN 10 (7-17) mg/dL Creatinine 0.88 (0.52-1.04) mg/dL Est GFR (CKD-EPI)AfAm 87 (>60 ml/min/1.73 sqM) Est GFR (CKD-EPI)NonAf 76 (>60 ml/min/1.73 sqM) Glucose 95 (74-99) mg/dL Plasma Lactic Acid Prasanna (0.7-2.0) mmol/L Calcium 9.9 (8.4-10.2) mg/dL Total Bilirubin 0.7 (0.2-1.3) mg/dL AST 39 H (14-36) U/L ALT 32 (4-34) U/L Alkaline Phosphatase 89 (38-126) U/L Troponin I (0.000-0.034) ng/mL Total Protein 6.9 (6.3-8.2) g/dL Albumin 3.9 (3.5-5.0) g/dL 06/10/20 06/10/20 Range/Units 15:28 15:28 WBC (3.8-10.6) k/uL RBC (3.80-5.40) m/uL Hgb (11.4-16.0) gm/dL Hct (34.0-46.0) % MCV (80.0-100.0) fL MCH (25.0-35.0) pg MCHC (31.0-37.0) g/dL RDW (11.5-15.5) % Plt Count (150-450) k/uL MPV Neutrophils % % Lymphocytes % % Monocytes % % Eosinophils % % Basophils % % Neutrophils # (1.3-7.7) k/uL Lymphocytes # (1.0-4.8) k/uL Monocytes # (0-1.0) k/uL Eosinophils # (0-0.7) k/uL Basophils # (0-0.2) k/uL PT (9.0-12.0) sec INR (<1.2) APTT (22.0-30.0) sec D-Dimer (<0.60) mg/L FEU Sodium (137-145) mmol/L Potassium (3.5-5.1) mmol/L Chloride (98-107) mmol/L Carbon Dioxide (22-30) mmol/L Anion Gap mmol/L BUN (7-17) mg/dL Creatinine (0.52-1.04) mg/dL Est GFR (CKD-EPI)AfAm (>60 ml/min/1.73 sqM) Est GFR (CKD-EPI)NonAf (>60 ml/min/1.73 sqM) Glucose (74-99) mg/dL Plasma Lactic Acid Prasanna 1.0 (0.7-2.0) mmol/L Calcium (8.4-10.2) mg/dL Total Bilirubin (0.2-1.3) mg/dL AST (14-36) U/L ALT (4-34) U/L Alkaline Phosphatase (38-126) U/L Troponin I <0.012 (0.000-0.034) ng/mL Total Protein (6.3-8.2) g/dL Albumin (3.5-5.0) g/dL - EKG Data EKG Comments: EKG demonstrates normal sinus rhythm with a ventricular rate of 65. AR interval 160. QRS 86. QTC of 424. Inverted T-wave in leads [address] segment elevations Disposition Clinical Impression: COVID-19, Respiratory insufficiency Disposition: HOME SELF-CARE Condition: Stable Instructions (If sedation given, give patient instructions): Coronavirus Disease 2019 (COVID-19) Additional Instructions: You received BAM today. Follow up with your PCP in 2-4 days. You have a nodule on your right lung that needs to be watched by your primary care doctor. Return to the ED for any new or worsening symptoms. Is patient prescribed a controlled substance at d/c from ED?: No Referrals: Roberto Lindo MD [Primary Care Provider] - 1-2 days Time of Disposition: 16:25
[2020-06-10 16:50] VITALS: RESP 16
[2020-06-10] MEDS ORDERED: BAMLANIVIMAB (EUA) 700 MG, ETESEVIMAB (EUA) 1,400 MG in SODIUM CHLORIDE 0.9% 50 ML IVPB ONE (17:00)
[2020-06-10] MEDS ORDERED: SODIUM CHLORIDE 0.9% 50 ML IVPB ONE (18:00)
[2020-06-10 18:29] VITALS: BP 137/80; PULSE 71
== END 2020-06-10 18:28 | disposition home or self-care (01) ==
LOC: EC 12:49
DX: U07.1 COVID-19 (principal); F32.9 Major depressive disorder, single episode, unspecified; I10 Essential (primary) hypertension; J45.909 Unspecified asthma, uncomplicated; G47.33 Obstructive sleep apnea (adult) (pediatric); Z79.899 Other long term (current) drug therapy; Z99.89 Dependence on other enabling machines and devices; Z90.49 Acquired absence of other specified parts of digestive tract; Z96.651 Presence of right artificial knee joint
CPT/HCPCS: 36415; 93005; 85379; 80053; 83605; 84484; 85025; 85610; 85730; 71046; 99285; 96365; Q0245

== ENCOUNTER 2020-07-27 19:25 | Observation (INO) | payer OTHER ==
[2020-07-27] MEDS ORDERED: NITROGLYCERIN OINT 1 INCH/GM PACKET TOPICAL STA (19:39)
[2020-07-27] MEDS ORDERED: ASPIRIN 81 MG PO STA (19:39)
--- NOTE | 2020-07-27 19:41 | ED ---
General Adult HPI - General Chief complaint: Chest Pain Stated complaint: Chest pain Time Seen by Provider: 07/27/20 19:32 Source: patient, EMS, RN notes reviewed Mode of arrival: EMS Limitations: no limitations - History of Present Illness Initial comments: Patient is a pleasant 54-year-old female presenting to the emergency Department with complaints of chest discomfort. Onset of symptoms was yesterday. Symptoms are little bit worse today. Discomfort feels a Heaviness. Discomfort does increase with exertion. Discomfort does also increase somewhat with position changes. No associated dyspnea, nausea, or diaphoresis. No history of similar symptoms previously. No leg pain or leg swelling. - Related Data Home Medications Medication Instructions Recorded Confirmed DULoxetine HCL [Cymbalta] 30 mg PO HS 06/29/15 06/10/20 Lisinopril [Prinivil] 10 mg PO HS 03/07/19 06/10/20 rOPINIRole HCL [Requip] 0.25 mg PO HS 03/07/19 06/10/20 traZODone HCL 100 mg PO HS 03/07/19 06/10/20 Albuterol Sulfate [Proventil Hfa] 2 puff INHALATION RT-QID PRN 06/10/20 06/10/20 Allergies Allergy/AdvReac Type Severity Reaction Status Date / Time No Known Allergies Allergy Verified 07/27/20 19:31 Review of Systems ROS Statement: Those systems with pertinent positive or pertinent negative responses have been documented in the HPI. ROS Other: All systems not noted in ROS Statement are negative. Constitutional: Denies: fever Eyes: Denies: eye pain ENT: Denies: ear pain Respiratory: Denies: cough, dyspnea Cardiovascular: Reports: as per HPI, chest pain Endocrine: Denies: fatigue Gastrointestinal: Denies: abdominal pain Genitourinary: Denies: dysuria Musculoskeletal: Denies: back pain Skin: Denies: rash Neurological: Denies: weakness Past Medical History Past Medical History: Asthma, Hypertension, Osteoarthritis (OA), Sleep Apnea/CPAP/BIPAP Additional Past Medical History / Comment(s): USES C-PAP MACHINE, RLS, POST MENOPAUSAL BLEEDING, PATIENT STATES 2 BROKEN TEETH, TOOTH PAIN-WAITING TO HAVE TEETH PULLED . History of Any Multi-Drug Resistant Organisms: None Reported Past Surgical History: Cholecystectomy, Joint Replacement Additional Past Surgical History / Comment(s): total right knee, salpingectomy? Past Anesthesia/Blood Transfusion Reactions: No Reported Reaction Past Psychological History: Depression Smoking Status: Never smoker Past Alcohol Use History: None Reported Past Drug Use History: None Reported - Past Family History Father Family Medical History: Diabetes Mellitus, Myocardial Infarction ([place]) Mother Family Medical History: Diabetes Mellitus, Myocardial Infarction ([place]) Brother(s) Family Medical History: Diabetes Mellitus, Myocardial Infarction ([place]) Son(s) Family Medical History: No Reported History Daughter(s) Additional Family Medical History / Comment(s): mental disability, ovarian cysts, endometriosis General Exam Limitations: no limitations General appearance: alert, in no apparent distress Head exam: Present: normocephalic Eye exam: Present: normal appearance Neck exam: Present: normal inspection Respiratory exam: Present: normal lung sounds bilaterally Cardiovascular Exam: Present: regular rate, normal rhythm GI/Abdominal exam: Present: soft. Absent: tenderness Extremities exam: Present: normal inspection. Absent: pedal edema, calf tenderness Neurological exam: Present: alert Psychiatric exam: Present: normal affect, normal mood Skin exam: Present: normal color Course Vital Signs 07/27/20 07/27/20 19:27 21:08 Temperature 98.7 F Pulse Rate 62 79 Respiratory 19 18 Rate Blood Pressure 197/99 177/80 O2 Sat by Pulse 99 98 Oximetry EKG Findings - EKG Comments: EKG Findings:: Size pericardial 58. MN 174. QRS 88. QT 424. QTC 416. Normal axis. Normal QRS. No acute ST change. Medical Decision Making - Medical Decision Making Patient reevaluated and updated. Case discussed with Dr. Fernando who will admit his patient with cardiology consult. He is made aware of pending CT. - Lab Data Result diagrams: 07/27/20 19:42 07/27/20 19:42 Lab Results 07/27/20 07/27/20 07/27/20 Range/Units 19:42 19:42 19:42 WBC 4.6 (3.8-10.6) k/uL RBC 4.17 (3.80-5.40) m/uL Hgb 12.2 (11.4-16.0) gm/dL Hct 35.7 (34.0-46.0) % MCV 85.6 (80.0-100.0) fL MCH 29.2 (25.0-35.0) pg MCHC 34.1 (31.0-37.0) g/dL RDW 14.7 (11.5-15.5) % Plt Count 277 (150-450) k/uL MPV 7.0 Neutrophils % 62 % Lymphocytes % 27 % Monocytes % 7 % Eosinophils % 2 % Basophils % 1 % Neutrophils # 2.8 (1.3-7.7) k/uL Lymphocytes # 1.3 (1.0-4.8) k/uL Monocytes # 0.3 (0-1.0) k/uL Eosinophils # 0.1 (0-0.7) k/uL Basophils # 0.0 (0-0.2) k/uL PT 9.7 (9.0-12.0) sec INR 0.9 (<1.2) APTT 22.8 (22.0-30.0) sec D-Dimer 1.32 H (<0.60) mg/L FEU Sodium 138 (137-145) mmol/L Potassium 4.4 (3.5-5.1) mmol/L Chloride 105 (98-107) mmol/L Carbon Dioxide 27 (22-30) mmol/L Anion Gap 6 mmol/L BUN 16 (7-17) mg/dL Creatinine 0.96 (0.52-1.04) mg/dL Est GFR (CKD-EPI)AfAm 78 (>60 ml/min/1.73 sqM) Est GFR (CKD-EPI)NonAf 68 (>60 ml/min/1.73 sqM) Glucose 112 H (74-99) mg/dL Calcium 9.9 (8.4-10.2) mg/dL Magnesium 2.1 (1.6-2.3) mg/dL Total Bilirubin 0.5 (0.2-1.3) mg/dL AST 23 (14-36) U/L ALT 21 (4-34) U/L Alkaline Phosphatase 77 (38-126) U/L Troponin I (0.000-0.034) ng/mL Total Protein 6.8 (6.3-8.2) g/dL Albumin 3.9 (3.5-5.0) g/dL 07/27/20 Range/Units 19:42 WBC (3.8-10.6) k/uL RBC (3.80-5.40) m/uL Hgb (11.4-16.0) gm/dL Hct (34.0-46.0) % MCV (80.0-100.0) fL MCH (25.0-35.0) pg MCHC (31.0-37.0) g/dL RDW (11.5-15.5) % Plt Count (150-450) k/uL MPV Neutrophils % % Lymphocytes % % Monocytes % % Eosinophils % % Basophils % % Neutrophils # (1.3-7.7) k/uL Lymphocytes # (1.0-4.8) k/uL Monocytes # (0-1.0) k/uL Eosinophils # (0-0.7) k/uL Basophils # (0-0.2) k/uL PT (9.0-12.0) sec INR (<1.2) APTT (22.0-30.0) sec D-Dimer (<0.60) mg/L FEU Sodium (137-145) mmol/L Potassium (3.5-5.1) mmol/L Chloride (98-107) mmol/L Carbon Dioxide (22-30) mmol/L Anion Gap mmol/L BUN (7-17) mg/dL Creatinine (0.52-1.04) mg/dL Est GFR (CKD-EPI)AfAm (>60 ml/min/1.73 sqM) Est GFR (CKD-EPI)NonAf (>60 ml/min/1.73 sqM) Glucose (74-99) mg/dL Calcium (8.4-10.2) mg/dL Magnesium (1.6-2.3) mg/dL Total Bilirubin (0.2-1.3) mg/dL AST (14-36) U/L ALT (4-34) U/L Alkaline Phosphatase (38-126) U/L Troponin I <0.012 (0.000-0.034) ng/mL Total Protein (6.3-8.2) g/dL Albumin (3.5-5.0) g/dL - Radiology Data Radiology results: image reviewed (X-ray shows cardiac megaly. No acute process.) Disposition Clinical Impression: Chest pain Disposition: ADMITTED IP TO THIS [facility] Is patient prescribed a controlled substance at d/c from ED?: No Referrals: Roberto Lindo MD [Primary Care Provider] - 1-2 days Decision Time: 22:01
[2020-07-27] MEDS ORDERED: lisinopriL 10 MG TAB PO STA (19:44)
[2020-07-27 19:50] LABS: Basophils % (A) 1 %; Eosinophils # (A) 0.1 k/uL (0-0.7); Eosinophils % (A) 2 %; HCT 35.7 % (34.0-46.0); HGB 12.2 gm/dL (11.4-16.0); Lymphocytes # (A) 1.3 k/uL (1.0-4.8); Lymphocytes % (A) 27 %; MCH 29.2 pg (25.0-35.0); MCHC 34.1 g/dL (31.0-37.0); MCV 85.6 fL (80.0-100.0); Monocytes # (A) 0.3 k/uL (0-1.0); Monocytes % (A) 7 %; Neutrophils # (A) 2.8 k/uL (1.3-7.7); Neutrophils % (A) 62 %; Platelet Count 277 k/uL (150-450); RBC 4.17 m/uL (3.80-5.40); RDW 14.7 % (11.5-15.5); WBC 4.6 k/uL (3.8-10.6)
[2020-07-27 20:00] LABS: Albumin 3.9 g/dL (3.5-5.0); Calcium 9.9 mg/dL (8.4-10.2); Magnesium 2.1 mg/dL (1.6-2.3); Potassium 4.4 mmol/L (3.5-5.1); Total Bilirubin 0.5 mg/dL (0.2-1.3); Total Protein 6.8 g/dL (6.3-8.2)
[2020-07-27 20:08] LABS: INR 0.9 (<1.2); Partial Thromboplastin Time 22.8 sec (22.0-30.0); Prothrombin Time 9.7 sec (9.0-12.0)
[2020-07-27 20:14] LABS: D-Dimer 1.32 mg/L FEU (<0.60)
--- NOTE | 2020-07-27 20:14 | XR ---
EXAMINATION TYPE: XR chest 2V DATE OF EXAM: 07/27/2020 COMPARISON: 06/10/2020 HISTORY: Short of breath. Chest pain TECHNIQUE: FINDINGS: There is no heart failure nor confluent pneumonic infiltrate. Costophrenic angles are clear . Heart is probably enlarged. IMPRESSION: Cardiomegaly. No active cardiopulmonary disease. No change.
[2020-07-27] MEDS ORDERED: NALOXONE 0.4 MG/ML 1 ML VIAL IV PRN (22:01)
[2020-07-27] MEDS ORDERED: SODIUM CHLORIDE 0.9% 1,000 ML IV SCH (22:15)
--- NOTE | 2020-07-27 22:21 | CT ---
EXAMINATION TYPE: CT angio chest DATE OF EXAM: 07/27/2020 COMPARISON: None HISTORY: Chest pain and elevated d-dimer. CT DLP: 945.5 mGycm Automated exposure control for dose reduction was used. CONTRAST: Performed with IV Contrast, patient injected with 100ml mL of Isovue 370. Images obtained from the thoracic inlet to the diaphragm with IV contrast. There are 3-D post process ed images. Heart is enlarged. There is no pericardial effusion. There is no pleural effusion. The lungs are juliano r of consolidation. There is no mediastinal adenopathy. There are no hilar masses. Thoracic aorta is intact.Ascending aor ta measures 3.6 cm. There is no aneurysm or dissection. There is normal contrast opacification of the pulmonary arteries. There are no filling defects. There is no pneumothorax. Upper abdominal soft tissues are intact. Bony thorax is intact. IMPRESSION: No evidence of pulmonary embolism. Mild cardiomegaly.
[2020-07-27] MEDS: DULoxetine HCL 30 MG CAPSULE.DR PO SCH (23:20)
[2020-07-27] MEDS: traZODone HCL 100 MG TAB PO SCH (23:20)
[2020-07-28] MEDS: lisinopriL 20 MG TAB PO SCH (11:25)
--- NOTE | 2020-07-28 15:01 | P.CRDCN ---
History of Present Illness History of present illness: HISTORY OF PRESENTING ILLNESS This is a pleasant 54-year-old female past medical history significant for dyslipidemia, hypertension, sleep apnea, uses a CPAP. She follows in the office with Dr. Morales. We have been asked to see in consultation for chest pain. Patient is seen and examined in the emergency department in no acute distress. Patient states she started to have chest pain yesterday and it became more frequent and she decided to present to the emergency department. Chest pain is in the center of her chest. It is nonradiating. Nonexertional. Describes chest pain as a heaviness. Her associated symptoms include a headache. She does have lower extremity edema. She denies nausea, diaphoresis, palpitations, shortness of breath, weakness, lightheadedness, syncope. She does not describe any aggravating symptoms were alleviated symptoms to chest pain. She denies symptoms of orthopnea or PND. She states she is compliant with her CPAP. Current home cardiac medications include lisinopril 10 mg nightly. She states she is compliant with her medications. She also states that majority of her diet are packaged and canned foods. She does not monitor her salt intake. On admission patient's blood pressure 197/99, heart rate 62, afebrile, maintaining oxygen saturation is 99% on room air. DIAGNOSTICS EKG reveals sinus bradycardia, heart rate 58, T wave inversions in lead 3 and lead V3, no significant ST-T wave abnormalities. Prior EKG in June looks similar Dobutamine stress echo 03/08/2019 was negative for ischemia Echo cardiogram 03/08/2019 EF 55-60%, mild tricuspid regurgitation, trace mitral regurgitation Telemetry tracings indicate S mechanism heart rate in the 70s. Chest xray heart size appears enlarged CT chest reveals no evidence of pulmonary embolism, mild cardiomegaly. Laboratory reviewed, troponin negative 3, d-dimer elevated 1.32, sodium 138, potassium 4.4, serum creatinine 0.96, COVID-19 negative, CBC unremarkable. REVIEW OF SYSTEMS At the time of my exam: CONSTITUTIONAL: Denies fever or chills. CARDIOVASCULAR: Positive chest pain Denies shortness of breath, orthopnea, PND or palpitations. RESPIRATORY: Denies cough. GASTROINTESTINAL: Denies abdominal pain, diarrhea, constipation, nausea or vomiting. MUSCULOSKELETAL: Denies myalgias. NEUROLOGIC: Positive headaches Denies numbness, tingling, or weakness. ENDOCRINE: Denies fatigue, weight change, polydipsia or polyurina. GENITOURINARY: Denies burning, hematuria or urgency with micturation. HEMATOLOGIC: Denies history of anemia or bleeding. PHYSICAL EXAMINATION Blood pressure 169/78 heart rate 82 afebrile and maintaining oxygen 97% on room air CONSTITUTIONAL: No apparent distress. HEENT: Head is normocephalic. Pupils are equal, round. Sclerae anicteric. Mucous membranes of the mouth are moist. No JVD. No carotid bruit. CHEST EXAMINATION: Lungs are clear to auscultation. No chest wall tenderness is noted on palpation or with deep breathing. HEART EXAMINATION: Regular rate and rhythm. S1, S2 heard. No murmurs, gallops or rub. ABDOMEN: Soft, nontender. Positive bowel sounds. EXTREMITIES: 2+ peripheral pulses, 3+ bilateral lower extremity edema and no calf tenderness. SKIN: intact NEUROLOGIC EXAMINATION: Patient is awake, alert and oriented x3. ASSESSMENT Chest pain, atypical. acute coronary syndrome has been ruled out Hypertension Dyslipidemia Obstructive sleep apnea PLAN An acute coronary event has been ruled out with no EKG evidence of ischemia and negative cardiac enzymes. Obtain 2D echocardiogram and doppler study to assess cardiac structure and func tion. Increase lisinopril to 20mg daily Check Lipid Panel and hemoglobin A1c Code Official consult for patient Follow up with Dr. Morales Thank you kindly for this consultation. Nurse Practitioner note has been reviewed, I agree with a documented findings and plan of care. Patient was seen and examined. Past Medical History Past Medical History: Asthma, GERD/Reflux, Hypertension, Osteoarthritis (OA), Sleep Apnea/CPAP/BIPAP Additional Past Medical History / Comment(s): [place] with Cpap, arthritis in multiple joints, RLS, past anemia History of Any Multi-Drug Resistant Organisms: None Reported Past Surgical History: Cholecystectomy, Joint Replacement, Tubal Ligation Additional Past Surgical History / Comment(s): R knee arthroscopy, R total knee arthroplasty, D&C hysteroscopy Past Anesthesia/Blood Transfusion Reactions: Motion Sickness Smoking Status: Never smoker - Past Family History Father Family Medical History: Diabetes Mellitus, Myocardial Infarction ([place]) Additional Family Medical History / Comment(s): AL in late 50s or early 60s. Mother Family Medical History: Coronary Artery Disease (CAD), Diabetes Mellitus, Myocardial Infarction ([place]) Additional Family Medical History / Comment(s): Mi late 50s or early 60s. CABG Brother(s) Family Medical History: Diabetes Mellitus, Myocardial Infarction ([place]) Additional Family Medical History / Comment(s): Brother had a AL in his 40s. Son(s) Family Medical History: No Reported History Daughter(s) Additional Family Medical History / Comment(s): mental disability, ovarian cysts, endometriosis Medications and Allergies Home Medications Medication Instructions Recorded Confirmed Type DULoxetine HCL [Cymbalta] 30 mg PO HS 06/29/15 07/27/20 History Lisinopril [Prinivil] 10 mg PO HS 03/07/19 07/27/20 History rOPINIRole HCL [Requip] 0.25 mg PO HS 03/07/19 07/27/20 History traZODone HCL 100 mg PO HS 03/07/19 07/27/20 History Albuterol Sulfate [Proventil Hfa] 2 puff INHALATION RT-QID PRN 06/10/20 07/27/20 History Ibuprofen [Motrin] 800 mg PO QID PRN 07/27/20 07/27/20 History Allergies Allergy/AdvReac Type Severity Reaction Status Date / Time No Known Allergies Allergy Verified 07/27/20 22:35 Physical Exam Vitals: Vital Signs Temp Pulse Pulse Resp BP BP Pulse Ox 07/28/20 07:00 97.6 F 69 16 138/75 97 07/28/20 01:00 82 18 169/78 98 07/27/20 21:08 79 18 177/80 98 07/27/20 19:27 98.7 F 62 19 197/99 99 Intake and Output 07/27/20 07/28/20 07/28/20 22:59 06:59 14:59 Other: Voiding Method Toilet Weight 136.078 kg 136.078 kg Results 07/27/20 19:42 07/27/20 19:42 Cardiac Enzymes 07/27/20 07/27/20 07/27/20 Range/Units 19:42 19:42 23:03 AST 23 (14-36) U/L Troponin I <0.012 <0.012 (0.000-0.034) ng/mL 07/28/20 Range/Units 01:40 AST (14-36) U/L Troponin I <0.012 (0.000-0.034) ng/mL Coagulation 07/27/20 Range/Units 19:42 PT 9.7 (9.0-12.0) sec APTT 22.8 (22.0-30.0) sec CBC 07/27/20 Range/Units 19:42 WBC 4.6 (3.8-10.6) k/uL RBC 4.17 (3.80-5.40) m/uL Hgb 12.2 (11.4-16.0) gm/dL Hct 35.7 (34.0-46.0) % Plt Count 277 (150-450) k/uL Comprehensive Metabolic Panel 07/27/20 Range/Units 19:42 Sodium 138 (137-145) mmol/L Potassium 4.4 (3.5-5.1) mmol/L Chloride 105 (98-107) mmol/L Carbon Dioxide 27 (22-30) mmol/L BUN 16 (7-17) mg/dL Creatinine 0.96 (0.52-1.04) mg/dL Glucose 112 H (74-99) mg/dL Calcium 9.9 (8.4-10.2) mg/dL AST 23 (14-36) U/L ALT 21 (4-34) U/L Alkaline Phosphatase 77 (38-126) U/L Total Protein 6.8 (6.3-8.2) g/dL Albumin 3.9 (3.5-5.0) g/dL Current Medications Generic Name Dose Route Start Last Admin Trade Name Freq PRN Reason Stop Dose Admin Duloxetine HCl 30 mg 07/27/20 22:30 07/27/20 23:20 Duloxetine Hcl 30 Mg Capsule.Dr PO 30 mg HS NÉSTOR Administration Lisinopril 20 mg 07/28/20 10:15 07/28/20 11:25 Lisinopril 20 Mg Tab PO 20 mg DAILY NÉSTOR Administration Naloxone HCl 0.2 mg 07/27/20 22:01 Naloxone 0.4 Mg/Ml 1 Ml Vial IV Q2M PRN Opioid Reversal Trazodone HCl 100 mg 07/27/20 22:30 07/27/20 23:20 Trazodone Hcl 100 Mg Tab PO 100 mg HS NÉSTOR Administration Intake and Output 05/24/21 05/25/21 05/25/21 22:59 06:59 14:59 Other: Voiding Method Toilet Weight 136.078 kg 136.078 kg Patient Weight 07/29/20 06:59 Weight 136.078 kg 07/27/20 19:42 07/27/20 19:42
--- NOTE | 2020-07-28 16:10 | HP ---
HISTORY AND PHYSICAL CHIEF COMPLAINT: Chest pain. HISTORY OF PRESENT ILLNESS: This is another admission for this 54-year-old obese white female. She presented to the emergency room with chest pain, which lasted roughly a day. She had no diaphoresis or shortness of breath. Enzymes in the emergency room were normal. REVIEW OF SYSTEMS: She denied any syncope, headache, cough, hemoptysis, sputum production, abdominal pain, nausea, vomiting, diarrhea, urinary complaints, etc. Past medical history, family history and personal and social histories are otherwise unremarkable. She does have a history of hyperlipidemia and hypertension. Her medications include trazodone, ropinirole for restless legs, ProAir, duloxetine, lisinopril, ibuprofen, and albuterol. The remainder of her history is unremarkable. She has never been a smoker. There is a family history of hypertension, diabetes, strokes, and depression. PHYSICAL EXAMINATION: Blood pressure is 128/70 with a pulse of 78, respirations 27, and she is afebrile. GENERAL: She appeared to be overweight. Skin color is normal. Skin is warm, dry. Lymph nodes are not enlarged. Head, ears, eyes, nose, mouth and throat are unremarkable. Chest is clear to auscultation and percussion. Cardiac exam is normal sinus rhythm and no murmurs or extra sounds. Abdomen is protuberant, soft and nontender without any visceromegaly or masses. Bowel sounds are present. Extremities are normal. Neurologically, she is intact. She is admitted to the hospital with diagnoses: 1. Chest pain. 2. History of hypertension. 3. Obesity. 4. Hyperlipidemia. PLAN: 1. Bedrest. 2. IV fluids. 3. Serial EKGs and enzymes. 4. Cardiology consult. MMODL / IJN: [id number] /
--- NOTE | 2020-07-28 18:01 | PN ---
PROGRESS NOTE CHIEF COMPLAINT: Chest pain. HISTORY OF PRESENT ILLNESS: This lady is doing fairly well and has not had any further chest discomfort. PHYSICAL EXAMINATION: Chest is clear. Cardiac exam is normal. Abdomen is protuberant, soft and nontender. IMPRESSION: Chest pain. PLAN: Progress activity and diet and await further management from Cardiology. MMODL / IJN: [id number] /
[2020-07-28 18:33] LABS: Hemoglobin A1C 5.6 % (4.0-6.0)
--- NOTE | 2020-07-28 18:56 | ECHOF ---
Referral Reason:bilateral lower extemity edema, chest pain MEASUREMENTS -------- HEIGHT: 157.5 cm WEIGHT: 136.1 kg BP: IVSd: 1.2 cm (0.6 - 1.1) LVIDd: 5.0 cm (3.9 - 5.3) LVPWd: 1.1 cm (0.6 - 1.1) EDV(Teich): 119 ml IVSs: 1.4 cm LVIDs: 3.7 cm LVPWs: 1.8 cm %IVS Thck: 13 % ESV(Teich): 57 ml EF(Teich): 52 % %FS: 27 % SV(Teich): 63 ml Ao Diam: 3.0 cm (2.0 - 3.7) LA Diam: 4.0 cm (2.7 - 3.8) AV Cusp: 1.3 cm (1.5 - 2.6) EPSS: 0.8 cm MV E Ar: 0.60 m/s MV DecT: 229 ms MV Dec [place]: 2.6 m/s MV A Ar: 0.82 m/s MV E/A Ratio: 0.73 MV PHT: 67 ms TR Vmax: 1.69 m/s TR maxP.42 mmHg RAP: 5.00 mmHg RVSP: 16.42 mmHg MV EF SLOPE: 68.39 mm/s (70 - 150) MV EXCURSION: 18.39 mm (> 18.000) FINDINGS -------- Sinus rhythm. Morbid Obesity This was a techncally difficult study with suboptimal views, , Lumason utilized for enhancement of im ages. LV size, wall thickness and systolic function are normal, with an EF greater than 55%. The left jayesh tricular size is normal. The right ventricle is normal in size. The left atrial size is normal. The right atrial size is normal. 5.0mg OF Lumason UTLIZED: 2 OR MORE WALL SEGMENTS NOT VISUALIZED. There is mild aortic valve sclerosis. There is no evidence of aortic regurgitation. Mild mitral regurgitation is present. Mild tricuspid regurgitation present. Right ventricular systolic pressure is normal at < 35 mmHg. There is no pulmonic regurgitation present. The aortic root size is normal. There is a trivial pericardial effusion present. CONCLUSIONS -------- 1. Morbid Obesity 2. This was a techncally difficult study with suboptimal views, , Lumason utilized for enhancement of images. 3. LV size, wall thickness and systolic function are normal, with an EF greater than 55%. 4. The left ventricular size is normal. 5. The right ventricle is normal in size. 6. The left atrial size is normal. 7. The right atrial size is normal. 8. 5.0mg OF Lumason UTLIZED: 2 OR MORE WALL SEGMENTS NOT VISUALIZED. 9. There is mild aortic valve sclerosis. 10. Mild mitral regurgitation is present. 11. Mild tricuspid regurgitation present. 12. There is no pulmonic regurgitation present. 13. The aortic root size is normal. 14. There is a trivial pericardial effusion present. MILK DRIVER: Lona Lagos RDCS
[2020-07-28] MEDS: traZODone HCL 100 MG TAB PO SCH (20:36)
[2020-07-28] MEDS: DULoxetine HCL 30 MG CAPSULE.DR PO SCH (20:36)
[2020-07-28 20:54] LABS: Chol/HDL Ratio 3.82
[2020-07-29 07:21] VITALS: BP 155/83; PULSE 63; RESP 18; TEMP 97.7
[2020-07-29] MEDS: lisinopriL 20 MG TAB PO SCH (08:16)
[2020-07-29] MEDS ORDERED: hydroCHLOROthiazide 25 MG TAB PO SCH (11:00)
--- NOTE | 2020-07-29 14:41 | P.PN ---
Subjective HISTORY OF PRESENTING ILLNESS This is a pleasant 54-year-old female past medical history significant for dyslipidemia, hypertension, sleep apnea, uses a CPAP. She follows in the office with Dr. Morales. We have been asked to see in consultation for chest pain. Patient is seen and examined in the emergency department in no acute distress. Patient states she started to have chest pain yesterday and it became more frequent and she decided to present to the emergency department. Chest pain is in the center of her chest. It is nonradiating. Nonexertional. Describes chest pain as a heaviness. Her associated symptoms include a headache. She does have lower extremity edema. She denies nausea, diaphoresis, palpitations, shortness of breath, weakness, lightheadedness, syncope. She does not describe any aggravating symptoms were alleviated symptoms to chest pain. She denies symptoms of orthopnea or PND. She states she is compliant with her CPAP. Current home cardiac medications include lisinopril 10 mg nightly. She states she is compliant with her medications. She also states that majority of her diet are packaged and canned foods. She does not monitor her salt intake. On admission patient's blood pressure 197/99, heart rate 62, afebrile, maintaining oxygen saturation is 99% on room air. DIAGNOSTICS EKG reveals sinus bradycardia, heart rate 58, T wave inversions in lead 3 and lead V3, no significant ST-T wave abnormalities. Prior EKG in June looks similar Dobutamine stress echo 03/08/2019 was negative for ischemia Echo cardiogram 03/08/2019 EF 55-60%, mild tricuspid regurgitation, trace mitral regurgitation Chest xray heart size appears enlarged CT chest reveals no evidence of pulmonary embolism, mild cardiomegaly. 07/29/2020 Patient seen and examined at bedside, no acute distress. Sitting up at the edge of the bed. Patient has improved LE edema. Patients SBP range 150s to 160s. Telemetry tracings indicate mechanism heart rate in the 60s-70s. PHYSICAL EXAMINATION Blood pressure 155/83 heart rate 63 afebrile and maintaining oxygen 98% on room air CONSTITUTIONAL: No apparent distress. HEENT: Head is normocephalic. No JVD. No carotid bruit. CHEST EXAMINATION: Lungs are clear to auscultation. No chest wall tenderness is noted on palpation or with deep breathing. HEART EXAMINATION: Regular rate and rhythm. S1, S2 heard. No murmurs, gallops or rub. ABDOMEN: Soft, nontender. Positive bowel sounds. EXTREMITIES: 2+ peripheral pulses, 2+ bilateral lower extremity edema and no calf tenderness. Improved lower extremity edema SKIN: intact NEUROLOGIC EXAMINATION: Patient is awake, alert and oriented x3. ASSESSMENT Chest pain, atypical. An acute coronary event has been ruled out with no EKG evidence of ischemia and negative cardiac enzymes. Hypertension Dyslipidemia Obstructive sleep apnea PLAN Continue Lisinopril 20mg daily Add Hydrochlorothiazide 25mg Daily Patient educated on diet and importance of limiting canned and packaged meals Follow up with Dr. Morales outpatient within 1 week. Thank you kindly for this consultation. Nurse Practitioner note has been reviewed, I agree with a documented findings and plan of care. Patient was seen and examined. Objective - Vital Signs Vital signs: Vital Signs Temp 97.7 F 07/29/20 07:00 Pulse 63 07/29/20 07:00 Resp 18 07/29/20 07:00 BP 155/83 07/29/20 07:00 Pulse Ox 98 07/29/20 07:00 Intake & Output 07/28/20 07/29/20 07/29/20 18:59 06:59 18:59 Weight 136.078 kg Other: Voiding Method Toilet Toilet # Voids 1 - Labs CBC & Chem 7: 07/27/20 19:42 07/27/20 19:42
[2020-07-29 15:11] VITALS: BMI 54.8
--- NOTE | 2020-07-31 06:13 | DS ---
DISCHARGE SUMMARY DATE OF SERVICE: 07/29/2020 CHIEF COMPLAINT: Chest pain. HISTORY OF PRESENT ILLNESS AND PHYSICAL EXAMINATION: Details of this lady's history and physical can be found in the initial workup. LABORATORY STUDIES: While she was in a hospital she had laboratory studies, details of which can be found in the laboratory section of her chart. COURSE IN THE HOSPITAL: After admission she was placed on bedrest and started on intravenous fluids and had serial EKGs and enzymes which were normal. She was seen by Cardiology. It was felt that her pain was non cardiac in nature and that she could go home on the and she will go home on usual activity, diet, medication, and she will be followed up in several days in the office. FINAL DIAGNOSIS: 1. Atypical chest pain. 2. Obesity. 3. Hypertension. OPERATIONS: None. CONSULTATION: Cardiology. She is improved. MMHUAL / KENN: [phone] /
== END 2020-07-29 14:15 | disposition home or self-care (01) ==
LOC: EC 19:25 → 6NMEDSUR 22:01
PROVIDERS: ADMIT Family Medicine; ATTEND Family Medicine
DX: R07.89 Other chest pain (principal); I11.9 Hypertensive heart disease without heart failure; E78.5 Hyperlipidemia, unspecified; I36.1 Nonrheumatic tricuspid (valve) insufficiency; G47.33 Obstructive sleep apnea (adult) (pediatric); J45.909 Unspecified asthma, uncomplicated; M13.0 Polyarthritis, unspecified; S02.5XXA Fracture of tooth (traumatic), initial encounter for closed fracture; X58.XXXA Exposure to other specified factors, initial encounter; F32.9 Major depressive disorder, single episode, unspecified; Z78.0 Asymptomatic menopausal state; R51.9 Headache, unspecified; R60.0 Localized edema; R00.1 Bradycardia, unspecified; E66.9 Obesity, unspecified; Z68.43 Body mass index [BMI] 50.0-59.9, adult; Z20.822 Contact with and (suspected) exposure to COVID-19; Z79.899 Other long term (current) drug therapy; Z90.49 Acquired absence of other specified parts of digestive tract; Z96.651 Presence of right artificial knee joint; Z82.49 Family history of ischemic heart disease and other diseases of the circulatory system; Z83.3 Family history of diabetes mellitus; Z81.0 Family history of intellectual disabilities; Z84.2 Family history of other diseases of the genitourinary system
CPT/HCPCS: 99285; 36415; 93005; 85379; 80061; 80053; 83735; 84484 ×2; 85025; 85610; 85730; 83036; 87635; 71046; 71275; G0378 ×3; C8929; Q9950; Q9967; 93306

== ENCOUNTER → 2020-08-14 | Outpatient (CLI) | payer OTHER ==
--- NOTE | 2020-08-19 13:15 | MM ---
Reason for exam: screening (asymptomatic). Last mammogram was performed 8 years and 5 months ago. History: Patient is postmenopausal. Physical Findings: A clinical breast exam by your physician is recommended on an annual basis and results should be correlated with mammographic findings. MG 3D Screening Mammo W/Cad Bilateral CC, MLO, and XCCL view(s) were taken. No prior studies available for comparison. The breast tissue is almost entirely fat. ASSESSMENT: Negative, BI-RAD 1 RECOMMENDATION: Routine screening mammogram of both breasts in 1 year.
== END | disposition home or self-care (01) ==
LOC: RADMAMWWP 09:39
PROVIDERS: ATTEND Family Medicine
DX: Z12.31 Encounter for screening mammogram for malignant neoplasm of breast (principal)
CPT/HCPCS: 77063; 77067

== ENCOUNTER 2021-05-01 21:34 | Emergency (ER) | payer OTHER ==
[2021-05-01 22:23] VITALS: RESP 18
--- NOTE | 2021-05-01 22:52 | XR ---
EXAMINATION TYPE: XR shoulder complete RT DATE OF EXAM: 05/01/2021 COMPARISON: NONE HISTORY: Shoulder pain TECHNIQUE: 3 views FINDINGS: I see no fracture nor dislocation. Glenohumeral joint is intact. There are no pathologic ca lcifications. IMPRESSION: Negative right shoulder exam. No fracture.
[2021-05-01] MEDS ORDERED: IBUPROFEN 600 MG STARTER PACK 4 TAB BTL PO STA (23:47)
--- NOTE | 2021-05-01 23:47 | ED ---
Upper Extremity HPI - General Chief Complaint: Extremity Injury, Upper Stated Complaint: Fall, rt shoulder injury Source: patient, RN notes reviewed, old records reviewed Mode of arrival: ambulatory Limitations: no limitations - History of Present Illness Initial Comments: This is a 55-year-old female to the ER today for evaluation of right shoulder pain. Patient fell at home sitting on her right shoulder slipping on the ground, some water on the ground landing on her right shoulder. She did not hit her head no loss of consciousness no neck pain. Patient's only complaint is in that right shoulder. She is able to move the arm but states the joint itself seems to have severe pain when she tries to raise her arm. Patient denies again any other injuries is able to amply currently without difficulty. Patient is not on blood thinners history of asthma high blood pressure MD Complaint: Injury to:: right, shoulder -: hour(s) Other Extremity Injury: Shoulder: Right Other Injuries: none Handedness: right Place: home Severity scale (1-10): 7 Improves With: none Worsens With: none Context: fall, direct blow Associated Symptoms: denies other symptoms Treatments Prior to Arrival: other (none) - Related Data Home Medications Medication Instructions Recorded Confirmed DULoxetine HCL [Cymbalta] 30 mg PO HS 06/29/15 07/27/20 rOPINIRole HCL [Requip] 0.25 mg PO HS 03/07/19 07/27/20 traZODone HCL 100 mg PO HS 03/07/19 07/27/20 Albuterol Sulfate [Proventil Hfa] 2 puff INHALATION RT-QID PRN 06/10/20 07/27/20 Ibuprofen [Motrin] 800 mg PO QID PRN 07/27/20 07/27/20 Previous Rx's Medication Instructions Recorded hydroCHLOROthiazide [Hydrodiuril] 25 mg PO DAILY 30 Days #30 tab 07/29/20 lisinopriL [Zestril] 20 mg PO DAILY 30 Days #30 tab 07/29/20 Allergies Allergy/AdvReac Type Severity Reaction Status Date / Time No Known Allergies Allergy Verified 05/01/21 22:23 Review of Systems ROS Statement: Those systems with pertinent positive or pertinent negative responses have been documented in the HPI. ROS Other: All systems not noted in ROS Statement are negative. Past Medical History Past Medical History: Asthma, GERD/Reflux, Hypertension, Osteoarthritis (OA), Sleep Apnea/CPAP/BIPAP Additional Past Medical History / Comment(s): [place] with Cpap, arthritis in multiple joints, RLS, past anemia History of Any Multi-Drug Resistant Organisms: None Reported Past Surgical History: Cholecystectomy, Joint Replacement, Tubal Ligation Additional Past Surgical History / Comment(s): R knee arthroscopy, R total knee arthroplasty, D&C hysteroscopy Past Anesthesia/Blood Transfusion Reactions: Motion Sickness Past Psychological History: Depression Smoking Status: Never smoker Past Alcohol Use History: None Reported Past Drug Use History: None Reported - Past Family History Father Family Medical History: Diabetes Mellitus, Myocardial Infarction (UT) Additional Family Medical History / Comment(s): UT in late 50s or early 60s. Mother Family Medical History: Coronary Artery Disease (CAD), Diabetes Mellitus, Myocardial Infarction (UT) Additional Family Medical History / Comment(s): Mi late 50s or early 60s. CABG Brother(s) Family Medical History: Diabetes Mellitus, Myocardial Infarction (UT) Additional Family Medical History / Comment(s): Brother had a UT in his 40s. Son(s) Family Medical History: No Reported History Daughter(s) Additional Family Medical History / Comment(s): mental disability, ovarian cysts, endometriosis General Exam Limitations: no limitations General appearance: alert, in no apparent distress Head exam: Present: atraumatic, normocephalic, normal inspection Eye exam: Present: normal appearance, PERRL, EOMI. Absent: scleral icterus, conjunctival injection, periorbital swelling ENT exam: Present: normal exam, mucous membranes moist Neck exam: Present: normal inspection. Absent: tenderness, meningismus, lymphadenopathy Respiratory exam: Present: normal lung sounds bilaterally. Absent: respiratory distress, wheezes, rales, rhonchi, stridor Cardiovascular Exam: Present: regular rate, normal rhythm, normal heart sounds. Absent: systolic murmur, diastolic murmur, rubs, gallop, clicks GI/Abdominal exam: Present: soft, normal bowel sounds. Absent: distended, tenderness, guarding, rebound, rigid Extremities exam: Present: normal inspection, tenderness (Significant tenderness to right before meals joint), normal capillary refill. Absent: full ROM, pedal edema, joint swelling, calf tenderness Back exam: Present: normal inspection Neurological exam: Present: alert, oriented X3, CN II-XII intact Psychiatric exam: Present: normal affect, normal mood Skin exam: Present: warm, dry, intact, normal color. Absent: rash Course Vital Signs 05/01/21 05/02/21 22:20 00:09 Temperature 97.9 F 97.8 F Pulse Rate 68 88 Respiratory 18 18 Rate Blood Pressure 173/82 147/87 O2 Sat by Pulse 98 97 Oximetry - Reevaluation(s) Reevaluation #1: Medical record is reviewed Patient's symptoms are improved here in the emergency department Patient informed results and questions answered Medical Decision Making - Medical Decision Making 55 female DEL with fall on right shoulder. Patient likely has mild before meals sprain versus significant shoulder contusion. Patient feeling improved here in the ER given exercises to do at home both passive and active movement. Patient can be discharged - Radiology Data Radiology results: report reviewed (X-ray right shoulder is negative for traumatic injury), image reviewed Disposition Clinical Impression: Contusion of right shoulder, Fall Disposition: HOME SELF-CARE Condition: Good Instructions (If sedation given, give patient instructions): Shoulder Sprain (ED) Is patient prescribed a controlled substance at d/c from ED?: No Referrals: Roberto Lindo MD [Primary Care Provider] - 1-2 days
[2021-05-02 00:14] VITALS: BP 147/87; PULSE 88; TEMP 97.8
== END 2021-05-02 00:14 | disposition home or self-care (01) ==
LOC: EC 21:34
DX: S40.011A Contusion of right shoulder, initial encounter (principal); J45.909 Unspecified asthma, uncomplicated; I10 Essential (primary) hypertension; W19.XXXA Unspecified fall, initial encounter
CPT/HCPCS: 99284

== ENCOUNTER → 2021-07-09 | Outpatient (CLI) | payer OTHER ==
--- NOTE | 2021-07-09 15:01 | CA ---
Transthoracic Echo Report Name: Rossi Graves Age: 55 Gender: F : 1965 Exam Date: 07/09/2021 14:08 Exam Location: [place] [facility] Ht (in): 62 Wt (lb): 315 Ordering Physician: Roberto Lindo MD Attending/Referring Phys: Belgica GRAHAM Early Childhood Coordinator Tennille Jama, [facility] Procedure CPT: Indications: R01.1 Murmur Cardiac Hx: Technical Quality: Fair Contrast 1: Total Dose (mL): Contrast 2: Total Dose (mL): MEASUREMENTS (Male / Female) Normal Values 2D ECHO LV Diastolic Diameter PLAX 4.6 cm 4.2 - 5.9 / 3.9 - 5.3 cm LV Systolic Diameter PLAX 2.9 cm IVS Diastolic Thickness 1.1 cm 0.6 - 1.0 / 0.6 - 0.9 cm LVPW Diastolic Thickness 1.0 cm 0.6 - 1.0 / 0.6 - 0.9 cm LV Relative Wall Thickness 0.5 RV Internal Dim ED PLAX 3.0 cm LA Systolic Diameter LX 3.2 cm 3.0 - 4.0 / 2.7 - 3.8 cm M-MODE Aortic Root Diameter MM 3.0 cm MV E Point Septal Separation 0.7 cm AV Cusp Separation MM 1.8 cm DOPPLER AV Peak Velocity 149.1 cm/s AV Peak Gradient 8.9 mmHg MV Area PHT 3.5 cm??? Mitral E Point Velocity 95.8 cm/s Mitral A Point Velocity 82.6 cm/s Mitral E to A Ratio 1.2 MV Deceleration Time 217.1 ms MV E' Velocity 6.2 cm/s Mitral E to MV E' Ratio 15.6 TR Peak Velocity 187.9 cm/s TR Peak Gradient 14.1 mmHg Right Ventricular Systolic Press 18.6 mmHg FINDINGS Left Ventricle Left ventricular ejection fraction is estimated at 55-60 %. Left ventricular cavity size normal. Mild concentric left ventricular hypertrophy. Right Ventricle Normal right ventricular size. Right ventricular systolic pressure within normal limits. Right Atrium Normal right atrial size. Left Atrium Normal left atrial size. No evidence for an atrial septal defect. Mitral Valve Structurally normal mitral valve. No mitral stenosis, regurgitation or prolapse. Aortic Valve Trileaflet aortic valve. No aortic valve stenosis or regurgitation. Tricuspid Valve Trace to mild tricuspid regurgitation. Pulmonic Valve Trace pulmonic regurgitation. Pericardium Normal pericardium. Aorta Normal size aortic root and proximal ascending aorta. CONCLUSIONS Normal left ventricular dimension and systolic function Normal right ventricular dimension and systolic function Normal intracardiac valves No evidence of pericardial effusion Previewed by: Dr. Wesly Pleitez MD (Electronically Signed) Final Date: 09 Jul 2021 15:00
== END | disposition home or self-care (01) ==
LOC: RADECHMAIN 13:55
PROVIDERS: ATTEND Family Medicine
DX: R01.1 Cardiac murmur, unspecified (principal); R53.83 Other fatigue
CPT/HCPCS: 93306